=== PATIENT | female | born 1960 | race African-American/Black ===

== ENCOUNTER 2019-08-12 12:03 | Inpatient (IN) | payer MEDICARE, MEDICAID ==
--- NOTE | 2019-08-12 12:33 | RAD ---
CHEST 1 VIEW: INDICATION: Cough. COMPARISON: No prior comparison. FINDINGS: There is diffuse interstitial and alveolar opacity throughout each lung, superimposed enlarged cardia c silhouette and prominent pulmonary vasculature. Pleural-based densities inferiorly may relate to pleural fluid, left greater than right. Numerous extrinsic artifacts limit detail. IMPRESSION: Diffuse bilateral pulmonary parenchymal opacities which may be on the basis of edema or atypical, ryan ateral pneumonia. Superimposed pleural fluid is suspected. Recommend clinical correlation, as well as continued imaging followup. Transcribed Date/Time: 08/12/2019 12:38 PM
[2019-08-12 12:43] LABS: Hemoglobin 11.2 g/dL (12.0-16.0); Mean Corpuscular Hemoglobin 23.5 pg (27.0-31.0); Mean Corpuscular Volume 78.3 fL (78.0-98.0); Platelet Count 196 thou/uL (130-400); RBC Distribution Width 17.4 % (11.5-14.5); Red Blood Cell (RBC) Count 4.77 mill/uL (4.20-5.40); White Blood Cell (WBC) Count 12.4 thou/uL (4.8-10.8)
[2019-08-12 12:48] LABS: Actual Bicarbonate (HCO3a) 31.5 mEq/L (22-28); Analyzer IN Cardio ER; Base Excess (BEa) 5.8 mEq/L (-2.0 to +3.0); CO2 Tension 50.2 mmHg (35.0-45.0); Carboxyhemoglobin (COHb) 0.9 gm% (0.0-3.0); Hemoglobin (Hb) 12.2 g/dL (12.0-16.0); Potassium - ABG Lab 4.12 mmol/L (3.70-5.30); pH, Arterial 7.42 (7.35-7.45)
[2019-08-12 12:49] LABS: O2 Tension (PaO2) 59.2 mmHg (80.0-100.0); Puncture Site LRA
[2019-08-12 13:04] LABS: Anisocytosis SLIGHT = 6-15 cells (100X) (0-5/hpf); Band 3 % (5-11); Eosinophils 9 % (0-10); Hypochromia SLIGHT = 6-15 cells (100X) (0-5/hpf); Lymphocytes 3 % (21-51); MDiff Complete? YES; Monocytes 2 % (0-10); Neutrophil 83 % (42-75); Platelet Morphology Comment Appears Adequate; Polychromasia SLIGHT = 2-3 cells (100X) (0-2/hpf); Schistocytes SLIGHT = 2-5 cells (100X) (0-1/hpf); Target Cells SLIGHT = 2-5 cells (100X) (0-1/hpf)
[2019-08-12 13:09] LABS: ALT (SGPT) 24 U/L (8-55); AST (SGOT) 27 U/L (5-34); Albumin 3.6 g/dL (3.5-5.0); Alkaline Phosphatase 98 U/L (40-110); Anion Gap 14 mmol/L (10-20); BUN (Urea Nitrogen) 22 mg/dL (9.8-20.1); Bilirubin, Total 0.7 mg/dL (0.2-1.2); Calc. Creatinine Clearance 0 mL/min (70-130); Calcium 9.3 mg/dL (7.8-10.44); Carbon Dioxide 31 mmol/L (22-29); Chloride 100 mmol/L (98-107); Estimated GFR-MDRD 44; Globulin 3.3 g/dL (2.4-3.5); Glucose 106 mg/dL (70-105); Potassium 4.5 mmol/L (3.5-5.1); Protein, Total 6.9 g/dL (6.0-8.3); Sodium 140 mmol/L (136-145)
[2019-08-12] MEDS ORDERED: Acetaminophen 325 MG TAB PO PRN (15:16)
[2019-08-12] MEDS ORDERED: Dextrose 50% Abboject 50 ML SYRINGE SLOW IVP PRN (15:18)
[2019-08-12] MEDS ORDERED: Dextrose 5% in Water 1,000 ML IV PRN (15:18)
[2019-08-12] MEDS ORDERED: HumaLOG 300 UNITS/3 ML VIAL SC PRN (15:18)
--- NOTE | 2019-08-12 18:05 | HP ---
CHIEF COMPLAINT: Shortness of breath. HISTORY OF PRESENT ILLNESS: The patient is a 59-year-old female, who really has never been here before, who has history of hypertension, diastolic heart failure. Interstitial lung disease, who presents to the hospital with complaints of shortness of breath. Apparently, the patient was recently in the hospital at [facility] and was discharged to a [facility] and she was going for her nephrology appointment. When she got to the clinic, she appeared not well, was in a bit of respiratory distress and at this time, she was brought into the hospital for further evaluation. The patient initially was very obtunded. She was put on BiPAP and was admitted. The patient currently is much more awake and conversing. I did speak with the patient's daughter who is at the bedside, who stated that the patient has been in and out of the hospital multiple times with a similar process. She has been to the [facility] and she has been to [facility], which was recently and now she is here at [facility]. The patient states that she was recently treated for pneumonia. PAST MEDICAL HISTORY: She has a history of diastolic heart failure, unknown EF, COPD, hypertension, stroke, and also a diagnosis of interstitial lung disease. I am not exactly sure who made that diagnosis. SURGICAL HISTORY: No surgical history. ALLERGIES: SHE HAS NO KNOWN DRUG ALLERGIES. HOME MEDICATIONS: Per the records, 1. She takes aspirin 81 mg daily. 2. Lasix 20 mg daily. 3. Lamictal 25 mg twice a day. 4. Tradjenta 5 mg daily. 5. Pravastatin 20 mg daily. 6. Prednisone 20 mg daily. 7. Sevelamer 400 mg daily. 8. Allopurinol 300 mg daily. 9. Amlodipine 5 mg daily. 10. Carvedilol 12.5 b.i.d. 11. Plavix 75 mg daily. 12. Iron 325 daily. 13. Breo one puff into lung daily. REVIEW OF SYSTEMS: All negative except for the ones mentioned above in the HPI. SOCIAL HISTORY: She was a former smoker, smoke a pack and a half a day for many years. She has occasional alcohol use. Denies any recreational except for some marijuana at times. She is a full code. Lives alone. Her daughter normally works multimedia technician. FAMILY HISTORY: No history of heart disease, cancers, or strokes. PHYSICAL EXAMINATION: VITAL SIGNS: Temperature of 98.8, heart rate in the 80s, blood pressure 125/65. She is currently 93% on BiPAP. GENERAL: She is awake, alert, and oriented x3. Does not appear in distress. HEENT: Normocephalic, atraumatic. No lymphadenopathy noted. Pupils are equal and reactive to light. LUNGS: She has some decreased breath sounds to bilateral lower lungs. Mild crackles noted. CV: S1, S2 present. No murmurs, rubs, or gallops. ABDOMEN: Soft and nontender. Bowel sounds are present x2. EXTREMITIES: She does have some lower extremity edema. Her right foot appears to be little bit more swollen than the left and this is not abnormal for her. She states that she has had right knee surgery and that right knee always is more swollen than her left. NEUROVASCULAR: She is able to move all 4 extremities. SKIN: No cuts, lesions, or bruises noted. LABORATORY RESULTS: WBCs of 12.4, hemoglobin of 11.2, hematocrit of 37.3, her MCV is 78, platelets of 196. Chemistry; sodium of 140, potassium of 4.5, BUN of 22, creatinine of 1.47. Troponin x1 was negative. BNP is 21.6. Her chest x-ray that was done indicated significant bilateral pulmonary parenchymal opacities. ASSESSMENT AND PLAN: The patient is a very pleasant 59-year-old female, who presents to the hospital with shortness of breath. 1. Acute hypoxic respiratory failure. The patient was found to be hypoxic and was put on BiPAP. The patient currently is much more awake and alert and talking. She does have some records from [facility], which I did review and looks like she has diagnosis of interstitial lung disease. However, I am not exactly sure and neither does the family know where she was diagnosed with this. She also has had a CAT scan done without contrast. This was done and it indicated moderate pulmonary fibrosis with associated traction bronchiectasis with distribution favoring UIP pattern of disease and enlarged left axillary lymph node, borderline prominent mediastinal lymph node. We will consult Pulmonary. I will also send some autoimmune workup on this patient. I am not sure if she has had ever any autoimmune workup. She denies any autoimmune disease. We will start the patient on some DuoNeb. I do not think this is another pneumonia. She recently was in the hospital about a week ago and was treated with antibiotics, however, for now, I will put on antibiotics and we will deescalate. I will also put on some steroids and continue to monitor. 2. History of stroke. We will continue her aspirin and Plavix and her statin. 3. History of diastolic heart failure. I will give her a dose of Lasix. We will see if she has recently had an echo. If not, we will get another echocardiogram. 4. DVT prophylaxis. We will put the patient on subcu heparin. Job ID: [id number]
[2019-08-12] MEDS: methylPREDNISolone Sod Succ 40 MG VIAL IVP SCH (19:30)
[2019-08-12] MEDS: Heparin 5,000 UNITS/ML VIAL SC SCH (20:43)
[2019-08-12] MEDS: Famotidine 20 MG TAB PO SCH (20:43)
[2019-08-13] MEDS: methylPREDNISolone Sod Succ 40 MG VIAL IVP SCH ×5 (00:15→23:29)
[2019-08-13 06:08] LABS: Anion Gap 12 mmol/L (10-20); BUN (Urea Nitrogen) 24 mg/dL (9.8-20.1); Calc. Creatinine Clearance 76 mL/min (70-130); Calcium 9.3 mg/dL (7.8-10.44); Carbon Dioxide 31 mmol/L (22-29); Chloride 100 mmol/L (98-107); Estimated GFR-MDRD 46; Glucose 107 mg/dL (70-105); Potassium 4.8 mmol/L (3.5-5.1); Sodium 138 mmol/L (136-145)
[2019-08-13 06:44] LABS: #Lymphocytes 0.6 thou/uL (1.20-3.40); #Monocytes 0.1 thou/uL (0.11-0.59); #Neutrophils 6.3 thou/uL (1.40-6.50); %Eosinophils 0.1 % (0.0-10.0); %Lymphocytes 8.2 % (21.0-51.0); %Monocytes 1.7 % (0.0-10.0); Hemoglobin 10.3 g/dL (12.0-16.0); Hypochromia SLIGHT = 6-15 cells (100X) (0-5/hpf); MDiff Complete? YES; Mean Corpuscular HGB CONC 29.5 g/dL (32.0-36.0); Mean Corpuscular Hemoglobin 23.2 pg (27.0-31.0); Mean Corpuscular Volume 78.5 fL (78.0-98.0); Mean Platelet Volume 7.3 fL (7.4-10.4); Platelet Count 170 thou/uL (130-400); Platelet Morphology Comment Appears Adequate; RBC Distribution Width 17.1 % (11.5-14.5); Red Blood Cell (RBC) Count 4.44 mill/uL (4.20-5.40); Target Cells SLIGHT = 2-5 cells (100X) (0-1/hpf)
[2019-08-13] MEDS ORDERED: Non-Formulary Item 1 EACH (Fluticasone Propionate [Flovent Diskus] 50 MCG) IH PRN (07:40)
[2019-08-13] MEDS ORDERED: Carvedilol 6.25 MG TAB PO SCH (08:00)
[2019-08-13] MEDS ORDERED: Sevelamer Carbonate 800 MG TAB PO SCH (08:15)
[2019-08-13] MEDS ORDERED: Mometasone/Formoterol 120 PUFF INHALER INH SCH (08:15)
[2019-08-13] MEDS: Clopidogrel Bisulfate 75 MG TAB PO SCH (11:17)
[2019-08-13] MEDS: Famotidine 20 MG TAB PO SCH ×2 (11:17→20:30)
[2019-08-13] MEDS: Alogliptin 25 MG TAB PO SCH (11:17)
[2019-08-13] MEDS: Aspirin 81 mg Enteric Coated Tablet PO SCH (11:17)
[2019-08-13] MEDS: Allopurinol 300 MG TAB PO SCH (11:17)
[2019-08-13] MEDS: Sevelamer Carbonate 800 MG TAB PO SCH ×2 (11:18→18:23)
[2019-08-13] MEDS: Furosemide 40 MG TAB PO SCH (11:18)
[2019-08-13] MEDS: Heparin 5,000 UNITS/ML VIAL SC SCH ×3 (11:18→20:30)
--- NOTE | 2019-08-13 11:29 | CON ---
DATE OF CONSULTATION: HISTORY OF PRESENT ILLNESS: Christen Thomas is a 59-year-old female, who was brought to the ER for shortness of breath. Apparently, she went to see a academic counselor, told to come to the ER. She is an extremely poor historian. It appears she has multiple medical problems including renal failure, congestive heart failure, COPD, bipolar disorder, and depression. Her sister, apparently takes care of her, was going to work. She is a smoker, who has quit smoking some years ago without any prior history of TB or pneumonia. PAST MEDICAL HISTORY: Otherwise, pertinent for bipolar disorder, diabetes, hypertension, high cholesterol, COPD, and asthma. PAST SURGICAL HISTORY: Otherwise included none recently. REVIEW OF SYSTEMS: Difficult to obtain. We will talk to her sister when she is available. PHYSICAL EXAMINATION: VITAL SIGNS: Temperature 96, saturations are 94% on high flow, respiratory rate 20, and blood pressure 152/99. CHEST: Bilateral rhonchi and crackles. CARDIAC: Normal S1 and S2. No gallops. ABDOMEN: No masses. DIAGNOSTIC DATA: X-ray shows diffuse interstitial infiltrates, cardiomegaly. White count 7000, H and H of 10/35, and platelet count is 170. PO2 is 59, pCO2 of 50% on high flow. Creatinine 1.43. Blood cultures are negative. IMPRESSION: 1. Respiratory failure, probably congestive heart failure. 2. Chronic obstructive pulmonary disease. 3. Asthma. 4. Renal failure. 5. Bipolar disorder. PLAN: We will try to get this information from family as they arrive. Otherwise, I will continue present treatments, steroids, neb treatments, empiric antibiotics. We will follow. Consultation note, 70 minutes, 50% direct patient care. Job ID: [id number]
--- NOTE | 2019-08-13 12:41 | PDOC.HOSPP ---
- Subjective Encounter Date: 08/13/19 Encounter Time: 11:30 Subjective: pt up in bed no feels well - Objective Vital Signs & Weight: Vital Signs (12 hours) Temp Pulse Resp Pulse Ox 08/13/19 11:24 72 24 H 97 08/13/19 11:16 97.1 F L 08/13/19 07:51 76 28 H 97 08/13/19 07:47 96.8 F L 08/13/19 07:28 96 08/13/19 04:00 97.4 F L Weight Weight 248 lb 7 oz Most Recent Monitor Data Heart Rate from ECG 104 NIBP 155/98 NIBP BP-Mean 117 Respiration from ECG 36 SpO2 85 I&O: 08/12/19 08/13/19 08/14/19 06:59 06:59 06:59 Intake Total 730 Output Total 150 Balance 580 Result Diagrams: 08/13/19 05:15 08/13/19 05:15 Additional Labs: Accuchecks 08/13/19 08/13/19 08/12/19 10:42 05:37 20:51 POC Glucose 102 106 129 H 08/12/19 18:21 POC Glucose 95 Hospitalist ROS - Review of Systems Cardiovascular: denies: chest pain, palpitations, orthopnea, paroxysmal noc. dyspnea, edema, light headedness, other Gastrointestinal: denies: nausea, vomiting, abdominal pain, diarrhea, constipation, melena, hematochezia, other Genitourinary: denies: dysuria, frequency, incontinence, hematuria, retention, other - Medication Medications: Active Medications Generic Name Dose Route Start Last Admin Trade Name Freq PRN Reason Stop Dose Admin Albuterol/Ipratropium 3 ml 08/12/19 19:00 08/13/19 11:24 Duoneb NEB 3 ml [id number] BRIEN Administration Allopurinol 150 mg 08/13/19 09:00 08/13/19 11:17 Zyloprim PO 150 mg DAILY BRIEN Administration Alogliptin Benzoate 25 mg 08/13/19 09:00 08/13/19 11:17 Alogliptin PO 25 mg DAILY BRIEN Administration Aspirin 81 mg 08/13/19 09:00 08/13/19 11:17 Ecotrin PO 81 mg DAILY BRIEN Administration Clopidogrel Bisulfate 75 mg 08/13/19 09:00 08/13/19 11:17 Plavix PO 75 mg DAILY BRIEN Administration Famotidine 20 mg 08/12/19 21:00 08/13/19 11:17 Pepcid PO 20 mg BID BRIEN Administration Furosemide 40 mg 08/13/19 09:00 08/13/19 11:18 Lasix PO 40 mg DAILY BRIEN Administration Heparin Sodium (Porcine) 5,000 units 08/12/19 21:00 08/13/19 11:18 Heparin SC 5,000 units TID BRIEN Administration Levofloxacin 500 mg/ Device 100 mls @ 100 mls/hr 08/12/19 18:00 08/12/19 19: 30 IVPB 100 mls 1800 BRIEN Administration Methylprednisolone Sodium Succinate 40 mg 08/12/19 18:00 08/13/19 11:18 Solu-Medrol IVP 40 mg Q6HR BRIEN Administration Sertraline HCl 100 mg 08/13/19 09:00 08/13/19 11:18 Zoloft PO 100 mg DAILY BRIEN Administration Sevelamer Carbonate 800 mg 08/13/19 12:00 08/13/19 11:18 Renvela PO Not Given TID-WM BRIEN - Exam Heart: negative: RRR, no murmur, no gallops, no rubs, normal peripheral pulses, irregular, diminshed peripheral pulses, murmur present, II/IV, III/IV Respiratory: negative: CTAB, no wheezes, no rales, no ronchi, normal chest expansion, no tachypnea, normal percussion, rales, rhonchi, tachypneic, wheezes Gastrointestinal: negative: soft, non-tender, non-distended, normal bowel sounds , no palpable masses, no hepatomegaly, no splenomegaly, no bruit, no guarding, no rigidity, tender to palpation, distended, diminished bowl sounds, voluntary guarding Hosp A/P (1) Acute respiratory failure with hypoxia Code(s): J96.01 - ACUTE RESPIRATORY FAILURE WITH HYPOXIA Status: Acute (2) Interstitial lung disease Code(s): J84.9 - INTERSTITIAL PULMONARY DISEASE, UNSPECIFIED Status: Acute (3) CKD (chronic kidney disease) stage 3, GFR 30-59 ml/min Code(s): N18.3 - CHRONIC KIDNEY DISEASE, STAGE 3 (MODERATE) Status: Acute - Plan pt on high flow, will continue abx, duonebs and steroids. await pulmonary consult.
[2019-08-13] MEDS: lamoTRIgine 25 MG TAB PO SCH ×2 (13:07→20:30)
[2019-08-13] MEDS: Carvedilol 6.25 MG TAB PO SCH (18:23)
[2019-08-13] MEDS: Mometasone/Formoterol 120 PUFF INHALER INH SCH (18:33)
[2019-08-13] MEDS: Pravastatin Sodium 20 MG TAB PO SCH (20:30)
[2019-08-14] MEDS: methylPREDNISolone Sod Succ 40 MG VIAL IVP SCH ×3 (05:57→20:58)
[2019-08-14] MEDS: Mometasone/Formoterol 120 PUFF INHALER INH SCH ×2 (07:18→19:09)
[2019-08-14] MEDS: Alogliptin 25 MG TAB PO SCH (10:02)
[2019-08-14] MEDS: Sevelamer Carbonate 800 MG TAB PO SCH ×3 (10:03→15:30)
[2019-08-14] MEDS: Furosemide 40 MG TAB PO SCH (10:03)
[2019-08-14] MEDS: Carvedilol 6.25 MG TAB PO SCH ×2 (10:03→15:29)
[2019-08-14] MEDS: Clopidogrel Bisulfate 75 MG TAB PO SCH (10:03)
[2019-08-14] MEDS: lamoTRIgine 25 MG TAB PO SCH ×2 (10:03→20:57)
[2019-08-14] MEDS: Aspirin 81 mg Enteric Coated Tablet PO SCH (10:04)
[2019-08-14] MEDS: Allopurinol 300 MG TAB PO SCH (10:04)
[2019-08-14] MEDS: Heparin 5,000 UNITS/ML VIAL SC SCH ×3 (10:04→20:58)
[2019-08-14] MEDS: Famotidine 20 MG TAB PO SCH ×2 (10:04→20:57)
--- NOTE | 2019-08-14 12:39 | PDOC.HOSPP ---
- Subjective Encounter Date: 08/14/19 Encounter Time: 10:30 Subjective: pt up in bed feels well. - Objective Vital Signs & Weight: Vital Signs (12 hours) Temp Pulse Resp BP Pulse Ox 08/14/19 10:42 97.8 F 08/14/19 10:18 84 28 H 93 L 08/14/19 10:03 124/73 08/14/19 08:00 98 08/14/19 07:18 95 08/14/19 07:17 67 30 H 95 08/14/19 07:09 97.6 F 08/14/19 03:52 97.6 F Weight Weight 248 lb 7 oz Most Recent Monitor Data Heart Rate from ECG 75 NIBP 124/73 NIBP BP-Mean 90 Respiration from ECG 30 SpO2 97 I&O: 08/13/19 08/14/19 08/15/19 06:59 06:59 06:59 Intake Total 730 1830 Output Total 150 2950 Balance 580 -1120 Result Diagrams: 08/13/19 05:15 08/13/19 05:15 Additional Labs: Accuchecks 08/14/19 08/14/19 08/13/19 10:14 05:53 20:22 POC Glucose 107 115 H 117 H 08/13/19 16:48 POC Glucose 103 Hospitalist ROS - Review of Systems Cardiovascular: denies: chest pain, palpitations, orthopnea, paroxysmal noc. dyspnea, edema, light headedness, other Gastrointestinal: denies: nausea, vomiting, abdominal pain, diarrhea, constipation, melena, hematochezia, other Genitourinary: denies: dysuria, frequency, incontinence, hematuria, retention, other - Medication Medications: Active Medications Generic Name Dose Route Start Last Admin Trade Name Freq PRN Reason Stop Dose Admin Albuterol/Ipratropium 3 ml 08/12/19 19:00 08/14/19 10:18 Duoneb NEB 3 ml [id number] BRIEN Administration Allopurinol 150 mg 08/13/19 09:00 08/14/19 10:04 Zyloprim PO 150 mg DAILY BRIEN Administration Alogliptin Benzoate 25 mg 08/13/19 09:00 08/14/19 10:02 Alogliptin PO 25 mg DAILY BRIEN Administration Aspirin 81 mg 08/13/19 09:00 08/14/19 10:04 Ecotrin PO 81 mg DAILY BRIEN Administration Carvedilol 12.5 mg 08/13/19 16:30 08/14/19 10:03 Coreg PO 12.5 mg BID-AC BRIEN Administration Clopidogrel Bisulfate 75 mg 08/13/19 09:00 08/14/19 10:03 Plavix PO 75 mg DAILY BRIEN Administration Famotidine 20 mg 08/12/19 21:00 08/14/19 10:04 Pepcid PO 20 mg BID BRIEN Administration Furosemide 40 mg 08/13/19 09:00 08/14/19 10:03 Lasix PO 40 mg DAILY BRIEN Administration Heparin Sodium (Porcine) 5,000 units 08/12/19 21:00 08/14/19 10:04 Heparin SC 5,000 units TID BRIEN Administration Levofloxacin 500 mg/ Device 100 mls @ 100 mls/hr 08/12/19 18:00 08/13/19 18: 23 IVPB 100 mls 1800 BRIEN Administration Lamotrigine 50 mg 08/13/19 09:00 08/14/19 10:03 Lamictal PO 50 mg BID BRIEN Administration Methylprednisolone Sodium Succinate 40 mg 08/12/19 18:00 08/14/19 11:30 Solu-Medrol IVP 40 mg Q6HR BRIEN Administration Mometasone Furoate/Formoterol Fumar 2 puff 08/13/19 18:30 08/14/19 07:18 Dulera 100 Mcg/5 Mcg Inhaler INH 2 puff BID-RT BRIEN Administration Pravastatin Sodium 20 mg 08/13/19 21:00 08/13/19 20:30 Pravachol PO 20 mg HS BRIEN Administration Sertraline HCl 100 mg 08/13/19 09:00 08/14/19 10:03 Zoloft PO 100 mg DAILY BRIEN Administration Sevelamer Carbonate 800 mg 08/13/19 12:00 08/14/19 11:31 Renvela PO 800 mg TID-WM BRIEN Administration - Exam Neck: negative: supple, symmetric, no JVD, no thyromegaly, no lymphadenopathy, no carotid bruit, JVD Heart: negative: RRR, no murmur, no gallops, no rubs, normal peripheral pulses, irregular, diminshed peripheral pulses, murmur present, II/IV, III/IV Respiratory: rales Hosp A/P (1) Acute respiratory failure with hypoxia Code(s): J96.01 - ACUTE RESPIRATORY FAILURE WITH HYPOXIA Status: Acute (2) Interstitial lung disease Code(s): J84.9 - INTERSTITIAL PULMONARY DISEASE, UNSPECIFIED Status: Acute (3) CKD (chronic kidney disease) stage 3, GFR 30-59 ml/min Code(s): N18.3 - CHRONIC KIDNEY DISEASE, STAGE 3 (MODERATE) Status: Acute - Plan pt on high flow, will continue abx, duonebs and steroids. await pulmonary consult. 08/14 will change steroids to bid, will get records from the Med. spoke with pulm who stated that she had a autoimmune workup. echo pending.
--- NOTE | 2019-08-14 16:57 | PRG ---
DATE OF SERVICE: 08/14/2019 SUBJECTIVE: Christen Thomas is in no distress. OBJECTIVE: VITAL SIGNS: She is afebrile, heart rate is in the 80s, blood pressure 120/60, and oximetry is 94% on 3 L. Intake and outputs, -1120. LUNGS: Remarkable for crackles at her bases. She is not wheezing. HEART: Regular rate and rhythm. ABDOMEN: Soft. EXTREMITIES: Without edema. IMPRESSION AND PLAN: 1. ? chronic obstructive pulmonary disease. 2. ? interstitial pneumonitis. 3. History of diastolic heart failure. 4. History of hypertension. Apparently, she presented obtunded according to the H and P and with BiPAP, improved. She apparently was also recently hospitalized at [facility], but it is unclear what workup was performed down there. She did apparently come in on steroids. We will continue to follow. Job ID: [id number]
[2019-08-14] MEDS: Pravastatin Sodium 20 MG TAB PO SCH (20:57)
[2019-08-15] MEDS: Mometasone/Formoterol 120 PUFF INHALER INH SCH ×2 (07:22→19:22)
[2019-08-15] MEDS: Sevelamer Carbonate 800 MG TAB PO SCH ×3 (09:46→17:25)
[2019-08-15] MEDS: Carvedilol 6.25 MG TAB PO SCH ×2 (09:46→17:25)
[2019-08-15] MEDS: Allopurinol 300 MG TAB PO SCH (09:46)
[2019-08-15] MEDS: Heparin 5,000 UNITS/ML VIAL SC SCH ×3 (09:47→20:55)
[2019-08-15] MEDS: Famotidine 20 MG TAB PO SCH ×2 (09:47→20:54)
[2019-08-15] MEDS: Clopidogrel Bisulfate 75 MG TAB PO SCH (09:47)
[2019-08-15] MEDS: Aspirin 81 mg Enteric Coated Tablet PO SCH (09:47)
[2019-08-15] MEDS: Alogliptin 25 MG TAB PO SCH (09:47)
[2019-08-15] MEDS: Furosemide 40 MG TAB PO SCH (09:47)
[2019-08-15] MEDS: methylPREDNISolone Sod Succ 40 MG VIAL IVP SCH ×2 (09:48→20:55)
[2019-08-15] MEDS: lamoTRIgine 25 MG TAB PO SCH ×2 (09:48→20:54)
--- NOTE | 2019-08-15 11:18 | PRG ---
DATE OF SERVICE: 08/15/2019 SUBJECTIVE: The patient feels somewhat better. Has no acute issues at this time. OBJECTIVE: VITAL SIGNS: Her temperature is 97.3, pulse 86, blood pressure 134/82, O2 saturation 96% on 5 L. HEENT: Unremarkable. NECK: No adenopathy or JVD. LUNGS: Slightly tachypneic, but clear breath sounds. CARDIAC: S1, S2. Regular. ABDOMEN: Soft. EXTREMITIES: No edema. LABORATORY DATA: No new labs were done today. ASSESSMENT: 1. Chronic obstructive pulmonary disease. 2. Congestive heart failure-acute diastolic. 3. Bipolar disorder. PLAN: She is continuing treatment with nebulization treatments, antibiotics, diuretics, and steroids. Continue to follow with you. Job ID: [id number]
--- NOTE | 2019-08-15 14:42 | PDOC.HOSPP ---
- Subjective Encounter Date: 08/15/19 Encounter Time: 10:00 Subjective: SOB with minimal exertion, on O2 via N/C - Objective Vital Signs & Weight: Vital Signs (12 hours) Temp Pulse Pulse Pulse Resp BP BP 08/15/19 11:18 97.2 F L 08/15/19 10:46 93 21 H 08/15/19 09:46 120/60 08/15/19 08:51 99 96 117/74 08/15/19 07:22 97.3 F L 08/15/19 07:21 83 27 H 08/15/19 07:18 08/15/19 03:26 98.1 F BP Pulse Ox Pulse Ox Pulse Ox Pulse Ox 08/15/19 11:18 08/15/19 10:46 98 08/15/19 09:46 08/15/19 08:51 134/78 63 L 93 L 85 L 08/15/19 07:22 08/15/19 07:21 97 08/15/19 07:18 97 08/15/19 03:26 Weight Weight 248 lb 7 oz Most Recent Monitor Data Heart Rate from ECG 73 NIBP 125/88 NIBP BP-Mean 100 Respiration from ECG 28 SpO2 93 I&O: 08/14/19 08/15/19 08/16/19 06:59 06:59 06:59 Intake Total 1830 1090 Output Total 2950 1030 Balance -1120 60 Result Diagrams: 08/13/19 05:15 08/13/19 05:15 Additional Labs: Accuchecks 08/15/19 08/15/19 08/14/19 10:40 06:19 20:17 POC Glucose 120 H 119 H 113 H 08/14/19 16:16 POC Glucose 140 H Hospitalist ROS - Medication Medications: Active Medications Generic Name Dose Route Start Last Admin Trade Name Freq PRN Reason Stop Dose Admin Albuterol/Ipratropium 3 ml 08/12/19 19:00 08/15/19 10:46 Duoneb NEB 3 ml [id number] BRIEN Administration Allopurinol 150 mg 08/13/19 09:00 08/15/19 09:46 Zyloprim PO 150 mg DAILY BRIEN Administration Alogliptin Benzoate 25 mg 08/13/19 09:00 08/15/19 09:47 Alogliptin PO 25 mg DAILY BRIEN Administration Aspirin 81 mg 08/13/19 09:00 08/15/19 09:47 Ecotrin PO 81 mg DAILY BRIEN Administration Carvedilol 12.5 mg 08/13/19 16:30 08/15/19 09:46 Coreg PO 12.5 mg BID-AC BRIEN Administration Clopidogrel Bisulfate 75 mg 08/13/19 09:00 08/15/19 09:47 Plavix PO 75 mg DAILY BRIEN Administration Famotidine 20 mg 08/12/19 21:00 08/15/19 09:47 Pepcid PO 20 mg BID BRIEN Administration Furosemide 40 mg 08/13/19 09:00 08/15/19 09:47 Lasix PO 40 mg DAILY BRIEN Administration Heparin Sodium (Porcine) 5,000 units 08/12/19 21:00 08/15/19 09:47 Heparin SC 5,000 units TID BRIEN Administration Levofloxacin 500 mg/ Device 100 mls @ 100 mls/hr 08/12/19 18:00 08/14/19 16: 55 IVPB 100 mls 1800 BRIEN Administration Lamotrigine 50 mg 08/13/19 09:00 08/15/19 09:48 Lamictal PO 50 mg BID BRIEN Administration Methylprednisolone Sodium Succinate 40 mg 08/14/19 21:00 08/15/19 09:48 Solu-Medrol IVP 40 mg BID BRIEN Administration Mometasone Furoate/Formoterol Fumar 2 puff 08/13/19 18:30 08/15/19 07:22 Dulera 100 Mcg/5 Mcg Inhaler INH 2 puff BID-RT BRIEN Administration Pravastatin Sodium 20 mg 08/13/19 21:00 08/14/19 20:57 Pravachol PO 20 mg HS BRIEN Administration Sertraline HCl 100 mg 08/13/19 09:00 08/15/19 09:48 Zoloft PO 100 mg DAILY BRIEN Administration Sevelamer Carbonate 800 mg 08/13/19 12:00 08/15/19 13:09 Renvela PO 800 mg TID-WM BRIEN Administration - Exam General Appearance: ill appearing Neck: no JVD Respiratory: rales Gastrointestinal: soft Extremities: no edema Neurological: no weakness Psychiatric: A&O x 3 Hosp A/P (1) Interstitial lung disease Code(s): J84.9 - INTERSTITIAL PULMONARY DISEASE, UNSPECIFIED Status: Acute (2) Acute respiratory failure with hypoxia Code(s): J96.01 - ACUTE RESPIRATORY FAILURE WITH HYPOXIA Status: Acute (3) CKD (chronic kidney disease) stage 3, GFR 30-59 ml/min Code(s): N18.3 - CHRONIC KIDNEY DISEASE, STAGE 3 (MODERATE) Status: Acute Plan: stable.. - Plan Continue steroids, brochodilators, antibiotics.. f/u with pulmonary..
[2019-08-15] MEDS: Pravastatin Sodium 20 MG TAB PO SCH (20:54)
[2019-08-16] MEDS: Mometasone/Formoterol 120 PUFF INHALER INH SCH ×2 (07:51→18:24)
[2019-08-16] MEDS: Carvedilol 6.25 MG TAB PO SCH ×2 (09:38→16:47)
[2019-08-16] MEDS: Allopurinol 300 MG TAB PO SCH (09:39)
[2019-08-16] MEDS: Sevelamer Carbonate 800 MG TAB PO SCH ×3 (09:39→16:47)
[2019-08-16] MEDS: Alogliptin 25 MG TAB PO SCH (09:39)
[2019-08-16] MEDS: Heparin 5,000 UNITS/ML VIAL SC SCH ×3 (09:40→20:09)
[2019-08-16] MEDS: lamoTRIgine 25 MG TAB PO SCH ×2 (09:40→20:17)
[2019-08-16] MEDS: Clopidogrel Bisulfate 75 MG TAB PO SCH (09:40)
[2019-08-16] MEDS: Furosemide 40 MG TAB PO SCH (09:40)
[2019-08-16] MEDS: Famotidine 20 MG TAB PO SCH ×2 (09:40→20:08)
[2019-08-16] MEDS: methylPREDNISolone Sod Succ 40 MG VIAL IVP SCH ×2 (09:40→20:09)
[2019-08-16] MEDS: Aspirin 81 mg Enteric Coated Tablet PO SCH (09:40)
--- NOTE | 2019-08-16 11:17 | PRG ---
DATE OF SERVICE: 08/16/2019 SUBJECTIVE: Today, Ms. Thomas's family was in the room and after they reminded me, I did remember seeing her at [facility] about a month ago. Currently, she is being treated for chronic obstructive pulmonary disease, but I do remember that there was some question about interstitial lung disease. I am fairly sure she had a CT scan done at that facility, but has not been done here. She is better today. She continues to require high amounts of oxygen. OBJECTIVE: VITAL SIGNS: Her temperature is 97.2, pulse 78, blood pressure 151/103, O2 saturation 97% on 5 L. HEENT: Unremarkable. NECK: No adenopathy or JVD. CHEST: Inspiratory crackles. CARDIAC: S1, S2. Regular. ABDOMEN: Soft. EXTREMITIES: No edema. ASSESSMENT: 1. Likely has some degree of interstitial lung disease, need to get PFTs at some point during this hospitalization. 2. She apparently has an outpatient appointment to see both Dr. Sagastume and in the not so distant future. 3. Transfer to medical floor. Job ID: [id number]
--- NOTE | 2019-08-16 13:50 | PDOC.HOSPP ---
- Subjective Encounter Date: 08/16/19 Encounter Time: 01:30 Subjective: No new complaint. +SOB - Objective Vital Signs & Weight: Vital Signs (12 hours) Temp Pulse Pulse Pulse Resp BP BP 08/16/19 11:16 97.2 F L 08/16/19 10:37 83 31 H 08/16/19 09:38 120/60 08/16/19 08:38 111 H 114 H 159/67 H 08/16/19 07:51 132 H 23 H 08/16/19 07:32 08/16/19 07:09 97.2 F L 08/16/19 03:19 97.4 F L BP Pulse Ox Pulse Ox Pulse Ox Pulse Ox 08/16/19 11:16 08/16/19 10:37 92 L 08/16/19 09:38 08/16/19 08:38 127/108 H 88 L 68 L 90 L 08/16/19 07:51 92 L 08/16/19 07:32 95 08/16/19 07:09 08/16/19 03:19 Weight Weight 248 lb 7 oz Most Recent Monitor Data Heart Rate from ECG 81 NIBP 159/87 NIBP BP-Mean 111 Respiration from ECG 30 SpO2 92 I&O: 08/15/19 08/16/19 08/17/19 06:59 06:59 06:59 Intake Total 1090 1130 Output Total 1030 1550 Balance 60 -420 Result Diagrams: 08/13/19 05:15 08/13/19 05:15 Additional Labs: Accuchecks 08/16/19 08/16/19 08/15/19 10:08 05:17 19:55 POC Glucose 106 105 109 08/15/19 16:45 POC Glucose 96 Hospitalist ROS - Medication Medications: Active Medications Generic Name Dose Route Start Last Admin Trade Name Freq PRN Reason Stop Dose Admin Albuterol/Ipratropium 3 ml 08/12/19 19:00 08/16/19 10:37 Duoneb NEB 3 ml [id number] BRIEN Administration Allopurinol 150 mg 08/13/19 09:00 08/16/19 09:39 Zyloprim PO 150 mg DAILY BRIEN Administration Alogliptin Benzoate 25 mg 08/13/19 09:00 08/16/19 09:39 Alogliptin PO 25 mg DAILY BRIEN Administration Aspirin 81 mg 08/13/19 09:00 08/16/19 09:40 Ecotrin PO 81 mg DAILY BRIEN Administration Carvedilol 12.5 mg 08/13/19 16:30 08/16/19 09:38 Coreg PO 12.5 mg BID-AC BRIEN Administration Clopidogrel Bisulfate 75 mg 08/13/19 09:00 08/16/19 09:40 Plavix PO 75 mg DAILY BRIEN Administration Famotidine 20 mg 08/12/19 21:00 08/16/19 09:40 Pepcid PO 20 mg BID BRIEN Administration Furosemide 40 mg 08/13/19 09:00 08/16/19 09:40 Lasix PO 40 mg DAILY BRIEN Administration Heparin Sodium (Porcine) 5,000 units 08/12/19 21:00 08/16/19 09:40 Heparin SC 5,000 units TID BRIEN Administration Levofloxacin 500 mg/ Device 100 mls @ 100 mls/hr 08/12/19 18:00 08/15/19 17: 25 IVPB 100 mls 1800 BRIEN Administration Lamotrigine 50 mg 08/13/19 09:00 08/16/19 09:40 Lamictal PO 50 mg BID BRIEN Administration Methylprednisolone Sodium Succinate 40 mg 08/14/19 21:00 08/16/19 09:40 Solu-Medrol IVP 40 mg BID BRIEN Administration Mometasone Furoate/Formoterol Fumar 2 puff 08/13/19 18:30 08/16/19 07:51 Dulera 100 Mcg/5 Mcg Inhaler INH 2 puff BID-RT BRIEN Administration Pravastatin Sodium 20 mg 08/13/19 21:00 08/15/19 20:54 Pravachol PO 20 mg HS BRIEN Administration Sertraline HCl 100 mg 08/13/19 09:00 08/16/19 09:40 Zoloft PO 100 mg DAILY BRIEN Administration Sevelamer Carbonate 800 mg 08/13/19 12:00 08/16/19 12:37 Renvela PO 800 mg TID-WM BRIEN Administration - Exam General Appearance: awake alert (On O2 via N/C.) Neck: no JVD Heart: RRR Respiratory: no ronchi Gastrointestinal: soft Extremities: no edema Neurological: no weakness Psychiatric: normal affect Hosp A/P (1) Interstitial lung disease Code(s): J84.9 - INTERSTITIAL PULMONARY DISEASE, UNSPECIFIED Status: Acute (2) Acute respiratory failure with hypoxia Code(s): J96.01 - ACUTE RESPIRATORY FAILURE WITH HYPOXIA Status: Acute (3) CKD (chronic kidney disease) stage 3, GFR 30-59 ml/min Code(s): N18.3 - CHRONIC KIDNEY DISEASE, STAGE 3 (MODERATE) Status: Acute - Plan Continue steroids, antibiotics,brochodilators, f/u with pulmonary..
[2019-08-16] MEDS: Pravastatin Sodium 20 MG TAB PO SCH (20:08)
[2019-08-17] MEDS: Mometasone/Formoterol 120 PUFF INHALER INH SCH ×2 (06:45→18:31)
[2019-08-17] MEDS: Alogliptin 25 MG TAB PO SCH (08:41)
[2019-08-17] MEDS: Sevelamer Carbonate 800 MG TAB PO SCH ×3 (08:41→16:27)
[2019-08-17] MEDS: Allopurinol 300 MG TAB PO SCH (08:41)
[2019-08-17] MEDS: Aspirin 81 mg Enteric Coated Tablet PO SCH (08:41)
[2019-08-17] MEDS: Clopidogrel Bisulfate 75 MG TAB PO SCH (08:41)
[2019-08-17] MEDS: ALPRAZolam 1 MG TAB PO PRN (08:41)
[2019-08-17] MEDS: Furosemide 40 MG TAB PO SCH (08:42)
[2019-08-17] MEDS: Carvedilol 6.25 MG TAB PO SCH ×2 (08:42→16:27)
[2019-08-17] MEDS: Famotidine 20 MG TAB PO SCH ×2 (08:42→21:06)
[2019-08-17] MEDS: Heparin 5,000 UNITS/ML VIAL SC SCH ×3 (08:43→21:06)
[2019-08-17] MEDS: methylPREDNISolone Sod Succ 40 MG VIAL IVP SCH ×2 (08:44→21:06)
[2019-08-17] MEDS ORDERED: Mometasone 100 MCG HFA INHALER INH PRN (10:09)
[2019-08-17] MEDS: lamoTRIgine 25 MG TAB PO SCH ×2 (10:10→21:06)
--- NOTE | 2019-08-17 12:08 | PRG ---
DATE OF SERVICE: 08/17/2019 SUBJECTIVE: The patient is about the same. She had no new complaints this morning. OBJECTIVE: VITAL SIGNS: Temperature is 97.8, pulse 94, respirations 16, and O2 saturation 93% on 4 L. HEENT: Unremarkable. NECK: No adenopathy, JVD, or bruits. LUNGS: Clear. ABDOMEN: Soft. EXTREMITIES: No edema. ASSESSMENT: 1. Probable interstitial lung disease. 2. Chronic obstructive pulmonary disease. PLAN: Wean oxygen as tolerated. Continue on IV steroids. Job ID: [id number]
--- NOTE | 2019-08-17 12:25 | PDOC.HOSPP ---
- Subjective Encounter Date: 08/17/19 Encounter Time: 12:23 Subjective: comfortable on O2 - Objective Vital Signs & Weight: Vital Signs (12 hours) Temp Pulse Resp BP BP BP Pulse Ox 08/17/19 12:00 98.9 F 99 28 H 102/69 90 L 08/17/19 10:54 94 16 93 L 08/17/19 08:42 160/97 H 08/17/19 07:37 100 08/17/19 07:30 97.8 F 63 22 H 119/74 08/17/19 07:25 97.8 F 78 24 H 137/87 100 08/17/19 06:47 86 20 90 L 08/17/19 06:45 85 16 90 L 08/17/19 04:52 98.2 F 82 20 159/94 H 93 L Weight Weight 248 lb 7 oz Most Recent Monitor Data Heart Rate from ECG 88 NIBP 125/85 NIBP BP-Mean 98 Respiration from ECG 30 SpO2 93 I&O: 08/16/19 08/17/19 08/18/19 06:59 06:59 06:59 Intake Total 1130 860 Output Total 1550 1150 Balance -420 -290 Result Diagrams: 08/13/19 05:15 08/13/19 05:15 Additional Labs: Accuchecks 08/17/19 08/17/19 08/16/19 11:34 04:03 19:44 POC Glucose 152 H 124 H 116 H Hospitalist ROS - Medication Medications: Active Medications Generic Name Dose Route Start Last Admin Trade Name Freq PRN Reason Stop Dose Admin Albuterol/Ipratropium 3 ml 08/12/19 19:00 08/17/19 10:54 Duoneb NEB 3 ml [id number] BRIEN Administration Allopurinol 150 mg 08/13/19 09:00 08/17/19 08:41 Zyloprim PO 150 mg DAILY BRIEN Administration Alogliptin Benzoate 25 mg 08/13/19 09:00 08/17/19 08:41 Alogliptin PO 25 mg DAILY BRIEN Administration Alprazolam 1 mg 08/15/19 16:52 08/17/19 08:41 Xanax PO 1 mg HS PRN Administration Anxiety Aspirin 81 mg 08/13/19 09:00 08/17/19 08:41 Ecotrin PO 81 mg DAILY BRIEN Administration Carvedilol 12.5 mg 08/13/19 16:30 08/17/19 08:42 Coreg PO 12.5 mg BID-AC BRIEN Administration Clopidogrel Bisulfate 75 mg 08/13/19 09:00 08/17/19 08:41 Plavix PO 75 mg DAILY BRIEN Administration Famotidine 20 mg 08/12/19 21:00 08/17/19 08:42 Pepcid PO 20 mg BID BRIEN Administration Furosemide 40 mg 08/13/19 09:00 08/17/19 08:42 Lasix PO 40 mg DAILY BRIEN Administration Heparin Sodium (Porcine) 5,000 units 08/12/19 21:00 08/17/19 08:43 Heparin SC 5,000 units TID BRIEN Administration Lamotrigine 50 mg 08/13/19 09:00 08/17/19 10:10 Lamictal PO 50 mg BID BRIEN Administration Methylprednisolone Sodium Succinate 40 mg 08/14/19 21:00 08/17/19 08:44 Solu-Medrol IVP 40 mg BID BRIEN Administration Mometasone Furoate/Formoterol Fumar 2 puff 08/13/19 18:30 08/17/19 06:45 Dulera 100 Mcg/5 Mcg Inhaler INH 2 puff BID-RT BRIEN Administration Pravastatin Sodium 20 mg 08/13/19 21:00 08/16/19 20:08 Pravachol PO 20 mg HS BRIEN Administration Sertraline HCl 100 mg 08/13/19 09:00 08/17/19 08:41 Zoloft PO 100 mg DAILY BRIEN Administration Sevelamer Carbonate 800 mg 08/13/19 12:00 08/17/19 12:03 Renvela PO 800 mg TID-WM BRIEN Administration - Exam General Appearance: awake alert Neck: no JVD Heart: RRR, no murmur Respiratory - other findings: diffuse fine rales Gastrointestinal: soft, normal bowel sounds Extremities: 2+ LE edema Hosp A/P (1) Acute respiratory failure with hypoxia Code(s): J96.01 - ACUTE RESPIRATORY FAILURE WITH HYPOXIA Status: Acute (2) Interstitial lung disease Code(s): J84.9 - INTERSTITIAL PULMONARY DISEASE, UNSPECIFIED Status: Acute (3) COPD (chronic obstructive pulmonary disease) Status: Acute Qualifiers: COPD type: unspecified COPD Qualified Code(s): J44.9 - Chronic obstructive pulmonary disease, unspecified (4) HTN (hypertension) Code(s): I10 - ESSENTIAL (PRIMARY) HYPERTENSION Status: Acute Qualifiers: Hypertension type: essential hypertension Qualified Code(s): I10 - Essential (primary) hypertension - Plan cont steroids, nebs, etc wean O2 as tolerated PA&L cxr
--- NOTE | 2019-08-17 15:33 | RAD ---
EXAM: Chest PA and lateral: HISTORY: Cough COMPARISON: 08/12/2019 FINDINGS: Diffuse interstitial and hazy alveolar infiltrate throughout both lungs again noted. Bilateral pleural effusions. Heart and mediastinum appear unremarkable. Osseous structures are unremarkable. IMPRESSION: Diffuse bilateral interstitial and alveolar infiltrates. Possible worsening since prior exam.
--- NOTE | 2019-08-17 17:35 | PDOC.EVN ---
Event Note - Event Note Event Note: Cxr- extensive iterstitial changes, unchanged
[2019-08-17] MEDS: Pravastatin Sodium 20 MG TAB PO SCH (21:05)
[2019-08-18] MEDS: Mometasone/Formoterol 120 PUFF INHALER INH SCH ×2 (07:17→19:39)
[2019-08-18] MEDS: Sevelamer Carbonate 800 MG TAB PO SCH ×3 (08:25→17:07)
[2019-08-18] MEDS: Furosemide 40 MG TAB PO SCH (08:26)
[2019-08-18] MEDS: Alogliptin 25 MG TAB PO SCH (08:26)
[2019-08-18] MEDS: Clopidogrel Bisulfate 75 MG TAB PO SCH (08:26)
[2019-08-18] MEDS: Famotidine 20 MG TAB PO SCH ×2 (08:26→20:36)
[2019-08-18] MEDS: Allopurinol 300 MG TAB PO SCH (08:26)
[2019-08-18] MEDS: Carvedilol 6.25 MG TAB PO SCH ×2 (08:26→17:07)
[2019-08-18] MEDS: Heparin 5,000 UNITS/ML VIAL SC SCH ×3 (08:26→20:37)
[2019-08-18] MEDS: Aspirin 81 mg Enteric Coated Tablet PO SCH (08:26)
[2019-08-18] MEDS: methylPREDNISolone Sod Succ 40 MG VIAL IVP SCH (08:27)
--- NOTE | 2019-08-18 09:07 | PRG ---
DATE OF SERVICE: 08/18/2019 SUBJECTIVE: Christen Thomas, this morning, she is awake, alert, and responsive. She is less short of breath. OBJECTIVE: VITAL SIGNS: Saturations are 93% on 4 L, temperature 98, blood pressure respiratory rate 18. CHEST: Bilateral crackles. CARDIAC: Normal S1 and S2. No gallops. ABDOMEN: No masses. IMAGING STUDIES: X-ray still shows rather extensive bilateral interstitial alveolar infiltrates. Echocardiogram shows normal LV function. IMPRESSION: Acute on chronic respiratory failure, diastolic dysfunction, questionable underlying end-stage lung disease. PLAN: At this stage, we will switch over to oral steroids, neb treatments, supportive care. We will order a high-resolution CT of the chest. We will follow. Job ID: [id number]
[2019-08-18] MEDS: predniSONE 20 MG TAB PO SCH ×2 (09:34→20:36)
[2019-08-18] MEDS: lamoTRIgine 25 MG TAB PO SCH ×2 (09:35→20:36)
--- NOTE | 2019-08-18 10:30 | CT ---
CT OF THE THORAX WITHOUT IV CONTRAST INDICATION: History of interstitial lung disease COMPARISON: Chest radiograph dated August 17, 2019 FINDINGS: LUNGS: There is scattered bronchiectasis with interstitial and groundglass opacity seen diffusely thr oughout both lungs. No airspace consolidation is present. Pleural spaces: Clear Lymph nodes: No pathologically enlarged lymph nodes. Heart and great vessels: The lack of IV contrast limits interrogation of the heart and great vessels. There is scattered thoracic and coronary artery calcifications. Upper abdomen: There is a subcentimeter hypodensity within segment 5 of the right hepatic lobe that c annot be further characterize. There is a small hiatal hernia. The esophagus appears to be of normal caliber. Osseous structures: No acute osseous abnormality. There is scattered degenerative and osteoarthritic change present. IMPRESSION: Scattered bronchiectasis with interstitial and groundglass opacity seen through diffusely without both lungs without airspace consolidation is consistent with the patient's known history of interstitial lung disease. The extent of the disease is predominantly basilar and can be seen with entities such as UIP, drug toxicity, hypersensitivity pneumonitis and NSIP.
--- NOTE | 2019-08-18 12:46 | PDOC.HOSPP ---
- Subjective Encounter Date: 08/18/19 Encounter Time: 12:43 Subjective: sob with exertion - Objective Vital Signs & Weight: Vital Signs (12 hours) Temp Pulse Resp BP Pulse Ox 08/18/19 12:14 96 18 92 L 08/18/19 11:43 98.9 F 95 20 130/84 97 08/18/19 10:42 95 20 92 L 08/18/19 08:25 93 L 08/18/19 08:20 98.8 F 100 18 135/93 H 93 L 08/18/19 07:15 98 22 H 93 L 08/18/19 03:37 82 20 94 L Weight Weight 248 lb 7 oz Most Recent Monitor Data Heart Rate from ECG 88 NIBP 125/85 NIBP BP-Mean 98 Respiration from ECG 30 SpO2 93 I&O: 08/17/19 08/18/19 08/19/19 06:59 06:59 06:59 Intake Total 860 1290 Output Total 1150 450 Balance -290 840 Result Diagrams: 08/13/19 05:15 08/13/19 05:15 Additional Labs: Accuchecks 08/18/19 08/18/19 08/17/19 11:42 04:21 19:54 POC Glucose 104 112 H 110 08/17/19 16:46 POC Glucose 132 H Hospitalist ROS - Medication Medications: Active Medications Generic Name Dose Route Start Last Admin Trade Name Freq PRN Reason Stop Dose Admin Albuterol/Ipratropium 3 ml 08/12/19 19:00 08/18/19 10:42 Duoneb NEB 3 ml [id number] BRIEN Administration Allopurinol 150 mg 08/13/19 09:00 08/18/19 08:26 Zyloprim PO 150 mg DAILY BRIEN Administration Alogliptin Benzoate 25 mg 08/13/19 09:00 08/18/19 08:26 Alogliptin PO 25 mg DAILY BRIEN Administration Alprazolam 1 mg 08/15/19 16:52 08/17/19 08:41 Xanax PO 1 mg HS PRN Administration Anxiety Aspirin 81 mg 08/13/19 09:00 08/18/19 08:26 Ecotrin PO 81 mg DAILY BRIEN Administration Carvedilol 12.5 mg 08/13/19 16:30 08/18/19 08:26 Coreg PO 12.5 mg BID-AC BRIEN Administration Clopidogrel Bisulfate 75 mg 08/13/19 09:00 08/18/19 08:26 Plavix PO 75 mg DAILY BRIEN Administration Famotidine 20 mg 08/12/19 21:00 08/18/19 08:26 Pepcid PO 20 mg BID BRIEN Administration Furosemide 40 mg 08/13/19 09:00 08/18/19 08:26 Lasix PO 40 mg DAILY BRIEN Administration Heparin Sodium (Porcine) 5,000 units 08/12/19 21:00 08/18/19 08:26 Heparin SC 5,000 units TID BRIEN Administration Lamotrigine 50 mg 08/13/19 09:00 08/18/19 09:35 Lamictal PO 50 mg BID BRIEN Administration Levofloxacin 500 mg 08/18/19 09:00 08/18/19 08:25 Levaquin PO 500 mg DAILY BRIEN Administration Mometasone Furoate/Formoterol Fumar 2 puff 08/13/19 18:30 08/18/19 07:17 Dulera 100 Mcg/5 Mcg Inhaler INH 2 puff BID-RT BRIEN Administration Pravastatin Sodium 20 mg 08/13/19 21:00 08/17/19 21:05 Pravachol PO 20 mg HS BRIEN Administration Prednisone 20 mg 08/18/19 09:00 08/18/19 09:34 Prednisone PO Not Given BID [facility] Sertraline HCl 100 mg 08/13/19 09:00 08/18/19 08:26 Zoloft PO 100 mg DAILY BRIEN Administration Sevelamer Carbonate 800 mg 08/13/19 12:00 08/18/19 12:12 Renvela PO 800 mg TID-WM BRIEN Administration - Exam Neck: no JVD Heart: RRR, no murmur Respiratory - other findings: diffuse fine rales Gastrointestinal: soft, normal bowel sounds Extremities: 1+ LE edema Hosp A/P (1) Acute respiratory failure with hypoxia Code(s): J96.01 - ACUTE RESPIRATORY FAILURE WITH HYPOXIA Status: Acute (2) Interstitial lung disease Code(s): J84.9 - INTERSTITIAL PULMONARY DISEASE, UNSPECIFIED Status: Acute (3) COPD (chronic obstructive pulmonary disease) Status: Acute Qualifiers: COPD type: unspecified COPD Qualified Code(s): J44.9 - Chronic obstructive pulmonary disease, unspecified (4) HTN (hypertension) Code(s): I10 - ESSENTIAL (PRIMARY) HYPERTENSION Status: Acute Qualifiers: Hypertension type: essential hypertension Qualified Code(s): I10 - Essential (primary) hypertension - Plan cont nebs, etc wean O2 as tolerated PA&L cxr transition steroids to po CT scan- bronchiectasis, pulmonare fibrosis discuss with pulmonology
[2019-08-18] MEDS: Pravastatin Sodium 20 MG TAB PO SCH (20:36)
[2019-08-18] MEDS: ALPRAZolam 1 MG TAB PO PRN (21:36)
[2019-08-18] MEDS ORDERED: Sucralfate 1 GM TAB PO SCH (22:00)
[2019-08-18 22:54] LABS: Troponin I Less than 0.010 ng/mL (< 0.028)
[2019-08-19] MEDS: Mometasone/Formoterol 120 PUFF INHALER INH SCH ×2 (06:50→19:08)
[2019-08-19] MEDS: Carvedilol 6.25 MG TAB PO SCH ×2 (08:26→16:57)
[2019-08-19] MEDS: Alogliptin 25 MG TAB PO SCH (08:26)
[2019-08-19] MEDS: predniSONE 20 MG TAB PO SCH ×2 (08:26→20:54)
[2019-08-19] MEDS: Allopurinol 300 MG TAB PO SCH (08:26)
[2019-08-19] MEDS: Furosemide 40 MG TAB PO SCH (08:26)
[2019-08-19] MEDS: Aspirin 81 mg Enteric Coated Tablet PO SCH (08:26)
[2019-08-19] MEDS: Sevelamer Carbonate 800 MG TAB PO SCH ×3 (08:26→16:57)
[2019-08-19] MEDS: Famotidine 20 MG TAB PO SCH ×2 (08:26→20:53)
[2019-08-19] MEDS: Clopidogrel Bisulfate 75 MG TAB PO SCH (08:26)
[2019-08-19] MEDS: Heparin 5,000 UNITS/ML VIAL SC SCH ×3 (08:27→20:55)
[2019-08-19] MEDS: lamoTRIgine 25 MG TAB PO SCH ×2 (08:43→20:54)
--- NOTE | 2019-08-19 11:41 | PDOC.HOSPP ---
- Subjective Encounter Date: 08/19/19 Encounter Time: 11:39 Subjective: epigastic pain early am - Objective Vital Signs & Weight: Vital Signs (12 hours) Temp Pulse Resp BP Pulse Ox 08/19/19 11:38 92 14 08/19/19 08:30 93 L 08/19/19 08:20 90 18 92 L 08/19/19 07:21 98.6 F 86 22 H 127/83 93 L 08/19/19 06:52 87 16 94 L 08/19/19 06:50 87 16 94 L 08/19/19 05:14 98.1 F 82 18 148/88 H 95 08/19/19 00:00 98.5 F 83 18 126/79 96 Weight Weight 248 lb 7 oz Most Recent Monitor Data Heart Rate from ECG 88 NIBP 125/85 NIBP BP-Mean 98 Respiration from ECG 30 SpO2 93 I&O: 08/18/19 08/19/19 08/20/19 06:59 06:59 06:59 Intake Total 1290 1702 Output Total 450 300 Balance 840 1402 Result Diagrams: 08/13/19 05:15 08/13/19 05:15 Additional Labs: Accuchecks 08/19/19 08/18/19 08/18/19 05:15 20:31 16:29 POC Glucose 106 94 134 H 08/18/19 11:42 POC Glucose 104 Hospitalist ROS - Medication Medications: Active Medications Generic Name Dose Route Start Last Admin Trade Name Freq PRN Reason Stop Dose Admin Albuterol/Ipratropium 3 ml 08/12/19 19:00 08/19/19 11:38 Duoneb NEB 3 ml [id number] BRIEN Administration Allopurinol 150 mg 08/13/19 09:00 08/19/19 08:26 Zyloprim PO 150 mg DAILY BRIEN Administration Alogliptin Benzoate 25 mg 08/13/19 09:00 08/19/19 08:26 Alogliptin PO 25 mg DAILY BRIEN Administration Alprazolam 1 mg 08/15/19 16:52 08/18/19 21:36 Xanax PO 1 mg HS PRN Administration Anxiety Aspirin 81 mg 08/13/19 09:00 08/19/19 08:26 Ecotrin PO 81 mg DAILY BRIEN Administration Carvedilol 12.5 mg 08/13/19 16:30 08/19/19 08:26 Coreg PO 12.5 mg BID-AC BRIEN Administration Clopidogrel Bisulfate 75 mg 08/13/19 09:00 08/19/19 08:26 Plavix PO 75 mg DAILY BRIEN Administration Famotidine 20 mg 08/12/19 21:00 08/19/19 08:26 Pepcid PO 20 mg BID BRIEN Administration Furosemide 40 mg 08/13/19 09:00 08/19/19 08:26 Lasix PO 40 mg DAILY BRIEN Administration Heparin Sodium (Porcine) 5,000 units 08/12/19 21:00 08/19/19 08:27 Heparin SC 5,000 units TID BRIEN Administration Lamotrigine 50 mg 08/13/19 09:00 08/19/19 08:43 Lamictal PO 50 mg BID BRIEN Administration Levofloxacin 500 mg 08/18/19 09:00 08/19/19 08:26 Levaquin PO 500 mg DAILY BRIEN Administration Mometasone Furoate/Formoterol Fumar 2 puff 08/13/19 18:30 08/19/19 06:50 Dulera 100 Mcg/5 Mcg Inhaler INH 2 puff BID-RT BRIEN Administration Pravastatin Sodium 20 mg 08/13/19 21:00 08/18/19 20:36 Pravachol PO 20 mg HS BRIEN Administration Prednisone 20 mg 08/18/19 09:00 08/19/19 08:26 Prednisone PO 20 mg BID BRIEN Administration Sertraline HCl 100 mg 08/13/19 09:00 08/19/19 08:26 Zoloft PO 100 mg DAILY BRIEN Administration Sevelamer Carbonate 800 mg 08/13/19 12:00 08/19/19 08:26 Renvela PO 800 mg TID-WM BRIEN Administration - Exam General Appearance: NAD, awake alert Neck: no JVD Heart: RRR Respiratory - other findings: diffuse fine rales Gastrointestinal: soft, normal bowel sounds Extremities: 1+ LE edema Hosp A/P (1) Acute respiratory failure with hypoxia Code(s): J96.01 - ACUTE RESPIRATORY FAILURE WITH HYPOXIA Status: Acute (2) Interstitial lung disease Code(s): J84.9 - INTERSTITIAL PULMONARY DISEASE, UNSPECIFIED Status: Acute (3) COPD (chronic obstructive pulmonary disease) Status: Chronic Qualifiers: COPD type: unspecified COPD Qualified Code(s): J44.9 - Chronic obstructive pulmonary disease, unspecified (4) HTN (hypertension) Code(s): I10 - ESSENTIAL (PRIMARY) HYPERTENSION Status: Chronic Qualifiers: Hypertension type: essential hypertension Qualified Code(s): I10 - Essential (primary) hypertension - Plan cont nebs, etc wean O2 as tolerated PA&L cxr transition steroids to po discuss with pulmonology obtain CBS, BMP, trop
[2019-08-19 11:56] LABS: #Eosinphils 0.1 thou/uL (0.0-0.7); #Lymphocytes 0.5 thou/uL (1.20-3.40); #Monocytes 0.8 thou/uL (0.11-0.59); #Neutrophils 11.3 thou/uL (1.40-6.50); %Basophils 0.2 % (0.0-1.0); %Eosinophils 0.7 % (0.0-10.0); %Lymphocytes 3.6 % (21.0-51.0); %Monocytes 6.3 % (0.0-10.0); %Neutrophils 89.2 % (42.0-75.0); Hemoglobin 12.3 g/dL (12.0-16.0); Mean Corpuscular HGB CONC 30.5 g/dL (32.0-36.0); Mean Corpuscular Volume 78.6 fL (78.0-98.0); Mean Platelet Volume 6.9 fL (7.4-10.4); Platelet Count 175 thou/uL (130-400); RBC Distribution Width 17.5 % (11.5-14.5); Red Blood Cell (RBC) Count 5.15 mill/uL (4.20-5.40); White Blood Cell (WBC) Count 12.7 thou/uL (4.8-10.8)
[2019-08-19 12:19] LABS: Anion Gap 9 mmol/L (10-20); BUN (Urea Nitrogen) 47 mg/dL (9.8-20.1); Calc. Creatinine Clearance 57 mL/min (70-130); Calcium 10.2 mg/dL (7.8-10.44); Carbon Dioxide 37 mmol/L (22-29); Chloride 98 mmol/L (98-107); Estimated GFR-MDRD 32; Glucose 114 mg/dL (70-105); Potassium 4.6 mmol/L (3.5-5.1); Sodium 139 mmol/L (136-145)
[2019-08-19 12:20] LABS: Troponin I Less than 0.010 ng/mL (< 0.028)
[2019-08-19 12:40] LABS: Band 1 % (5-11); Lymphocytes 8 % (21-51); MDiff Complete? YES; Microcytosis SLIGHT = 6-15 cells (100X) (0-5/hpf); Monocytes 5 % (0-10); Neutrophil 86 % (42-75); Platelet Morphology Comment Appears Adequate; Polychromasia SLIGHT = 2-3 cells (100X) (0-2/hpf); Stomatocytes SLIGHT = 2-5 cells (100X) (0-1/hpf); Target Cells SLIGHT = 2-5 cells (100X) (0-1/hpf)
[2019-08-19] MEDS: Pravastatin Sodium 20 MG TAB PO SCH (20:54)
[2019-08-20] MEDS: Mometasone/Formoterol 120 PUFF INHALER INH SCH ×2 (07:15→19:14)
[2019-08-20] MEDS: lamoTRIgine 25 MG TAB PO SCH ×2 (12:05→21:00)
[2019-08-20] MEDS: Sevelamer Carbonate 800 MG TAB PO SCH ×3 (12:19→17:07)
[2019-08-20] MEDS: Carvedilol 6.25 MG TAB PO SCH ×2 (12:19→17:08)
[2019-08-20] MEDS: Clopidogrel Bisulfate 75 MG TAB PO SCH (12:20)
[2019-08-20] MEDS: Furosemide 40 MG TAB PO SCH (12:20)
[2019-08-20] MEDS: Allopurinol 300 MG TAB PO SCH (12:20)
[2019-08-20] MEDS: Alogliptin 25 MG TAB PO SCH (12:20)
[2019-08-20] MEDS: Aspirin 81 mg Enteric Coated Tablet PO SCH (12:20)
[2019-08-20] MEDS: Heparin 5,000 UNITS/ML VIAL SC SCH ×3 (12:21→21:00)
[2019-08-20] MEDS: predniSONE 20 MG TAB PO SCH ×2 (13:12→21:00)
[2019-08-20] MEDS: Famotidine 20 MG TAB PO SCH ×2 (13:12→21:00)
--- NOTE | 2019-08-20 14:20 | PDOC.HOSPP ---
- Subjective Encounter Date: 08/20/19 Encounter Time: 14:19 Subjective: no real change - Objective Vital Signs & Weight: Vital Signs (12 hours) Pulse Resp Pulse Ox 08/20/19 14:15 91 16 93 L Weight Weight 248 lb 7 oz Most Recent Monitor Data Heart Rate from ECG 88 NIBP 125/85 NIBP BP-Mean 98 Respiration from ECG 30 SpO2 93 I&O: 08/19/19 08/20/19 08/21/19 06:59 06:59 06:59 Intake Total 1702 1200 Output Total 300 Balance 1402 1200 Result Diagrams: 08/19/19 11:46 08/19/19 11:46 Additional Labs: Accuchecks 08/20/19 08/20/19 08/19/19 11:21 04:23 19:47 POC Glucose 110 117 H 111 H 08/19/19 16:29 POC Glucose 131 H Hospitalist ROS - Medication Medications: Active Medications Generic Name Dose Route Start Last Admin Trade Name Freq PRN Reason Stop Dose Admin Albuterol/Ipratropium 3 ml 08/12/19 19:00 08/20/19 14:15 Duoneb NEB 3 ml [id number] BRIEN Administration Allopurinol 150 mg 08/13/19 09:00 08/20/19 12:20 Zyloprim PO Not Given DAILY [facility] Alogliptin Benzoate 25 mg 08/13/19 09:00 08/20/19 12:20 Alogliptin PO Not Given DAILY [facility] Alprazolam 1 mg 08/15/19 16:52 08/18/19 21:36 Xanax PO 1 mg HS PRN Administration Anxiety Aspirin 81 mg 08/13/19 09:00 08/20/19 12:20 Ecotrin PO Not Given DAILY [facility] Carvedilol 12.5 mg 08/13/19 16:30 08/20/19 12:19 Coreg PO Not Given BID-AC [facility] Clopidogrel Bisulfate 75 mg 08/13/19 09:00 08/20/19 12:20 Plavix PO Not Given DAILY [facility] Famotidine 20 mg 08/12/19 21:00 08/20/19 13:12 Pepcid PO 20 mg BID [facility] Administration Furosemide 40 mg 08/13/19 09:00 08/20/19 12:20 Lasix PO Not Given DAILY [facility] Heparin Sodium (Porcine) 5,000 units 08/12/19 21:00 08/20/19 12:21 Heparin SC Not Given TID BRIEN Lamotrigine 50 mg 08/13/19 09:00 08/19/19 20:54 Lamictal PO 50 mg BID BRIEN Administration Levofloxacin 500 mg 08/18/19 09:00 08/20/19 12:21 Levaquin PO Not Given DAILY BRIEN Mometasone Furoate/Formoterol Fumar 2 puff 08/13/19 18:30 08/20/19 07:15 Dulera 100 Mcg/5 Mcg Inhaler INH 2 puff BID-RT BRIEN Administration Pravastatin Sodium 20 mg 08/13/19 21:00 08/19/19 20:54 Pravachol PO 20 mg HS BRIEN Administration Prednisone 20 mg 08/18/19 09:00 08/20/19 13:12 Prednisone PO 20 mg BID BRIEN Administration Sertraline HCl 100 mg 08/13/19 09:00 08/20/19 12:21 Zoloft PO Not Given DAILY BRIEN Sevelamer Carbonate 800 mg 08/13/19 12:00 08/20/19 13:11 Renvela PO 800 mg TID-WM BRIEN Administration - Exam Neck: no JVD Heart: RRR Respiratory - other findings: diffuse fine rales Gastrointestinal: soft, normal bowel sounds Extremities: 1+ LE edema Hosp A/P (1) Acute respiratory failure with hypoxia Code(s): J96.01 - ACUTE RESPIRATORY FAILURE WITH HYPOXIA Status: Acute (2) Interstitial lung disease Code(s): J84.9 - INTERSTITIAL PULMONARY DISEASE, UNSPECIFIED Status: Acute (3) COPD (chronic obstructive pulmonary disease) Status: Chronic Qualifiers: COPD type: unspecified COPD Qualified Code(s): J44.9 - Chronic obstructive pulmonary disease, unspecified (4) HTN (hypertension) Code(s): I10 - ESSENTIAL (PRIMARY) HYPERTENSION Status: Chronic Qualifiers: Hypertension type: essential hypertension Qualified Code(s): I10 - Essential (primary) hypertension - Plan cont nebs, etc wean O2 as tolerated PA&L cxr transition steroids to po discuss with pulmonology
[2019-08-20] MEDS: Pravastatin Sodium 20 MG TAB PO SCH (21:00)
[2019-08-21] MEDS: Mometasone/Formoterol 120 PUFF INHALER INH SCH ×2 (06:39→19:51)
[2019-08-21] MEDS: Carvedilol 6.25 MG TAB PO SCH ×2 (08:50→17:47)
[2019-08-21] MEDS: Furosemide 40 MG TAB PO SCH (08:50)
[2019-08-21] MEDS: predniSONE 20 MG TAB PO SCH ×2 (08:51→21:14)
[2019-08-21] MEDS: Aspirin 81 mg Enteric Coated Tablet PO SCH (08:51)
[2019-08-21] MEDS: lamoTRIgine 25 MG TAB PO SCH ×2 (08:51→21:14)
[2019-08-21] MEDS: Sevelamer Carbonate 800 MG TAB PO SCH ×3 (08:52→17:48)
[2019-08-21] MEDS: Heparin 5,000 UNITS/ML VIAL SC SCH ×3 (08:52→21:11)
[2019-08-21] MEDS: Allopurinol 300 MG TAB PO SCH (08:52)
[2019-08-21] MEDS: Alogliptin 25 MG TAB PO SCH (08:52)
[2019-08-21] MEDS: Clopidogrel Bisulfate 75 MG TAB PO SCH (08:52)
[2019-08-21] MEDS: Famotidine 20 MG TAB PO SCH ×2 (08:52→21:11)
--- NOTE | 2019-08-21 12:08 | PDOC.HOSPP ---
- Subjective Encounter Date: 08/21/19 Encounter Time: 08:00 Subjective: pt feels weakness, has dyspnea and cough, no fever Patient seen and examined. No overnight events - Objective Vital Signs & Weight: Vital Signs (12 hours) Temp Pulse Resp BP BP Pulse Ox 08/21/19 10:54 89 46 H 93 L 08/21/19 08:50 118/80 08/21/19 08:08 98.6 F 90 22 H 118/80 94 L 08/21/19 06:37 87 16 95 08/21/19 02:54 93 L Weight Weight 248 lb 7 oz Most Recent Monitor Data Heart Rate from ECG 88 NIBP 125/85 NIBP BP-Mean 98 Respiration from ECG 30 SpO2 93 I&O: 08/20/19 08/21/19 08/22/19 06:59 06:59 06:59 Intake Total 1200 640 Balance 1200 640 Result Diagrams: 08/19/19 11:46 08/19/19 11:46 Additional Labs: Accuchecks 08/21/19 08/20/19 08/20/19 05:05 20:01 16:43 POC Glucose 106 97 106 08/20/19 11:21 POC Glucose 110 Radiology Reviewed by me: Yes Hospitalist ROS - Review of Systems Constitutional: reports: weakness. denies: fever, chills, sweats, malaise, other Respiratory: reports: cough, shortness of breath. denies: dry, hemoptysis, SOB with excertion, pleuritic pain, sputum, wheezing, other Cardiovascular: denies: chest pain, palpitations, orthopnea, paroxysmal noc. dyspnea, edema, light headedness, other Gastrointestinal: denies: nausea, vomiting, abdominal pain, diarrhea, constipation, melena, hematochezia, other Genitourinary: denies: dysuria, frequency, incontinence, hematuria, retention, other Musculoskeletal: denies: neck pain, shoulder pain, arm pain, back pain, hand pain, leg pain, foot pain, other Skin: denies: rash, lesions, hue, bruising, other - Medication Medications: Active Medications Generic Name Dose Route Start Last Admin Trade Name Freq PRN Reason Stop Dose Admin Albuterol/Ipratropium 3 ml 08/12/19 19:00 08/21/19 10:54 Duoneb NEB 3 ml [id number] BRIEN Administration Allopurinol 150 mg 08/13/19 09:00 08/21/19 08:52 Zyloprim PO 150 mg DAILY BRIEN Administration Alogliptin Benzoate 25 mg 08/13/19 09:00 08/21/19 08:52 Alogliptin PO 25 mg DAILY BRIEN Administration Alprazolam 1 mg 08/15/19 16:52 08/18/19 21:36 Xanax PO 1 mg HS PRN Administration Anxiety Aspirin 81 mg 08/13/19 09:00 08/21/19 08:51 Ecotrin PO 81 mg DAILY BRIEN Administration Carvedilol 12.5 mg 08/13/19 16:30 08/21/19 08:50 Coreg PO 12.5 mg BID-AC BRIEN Administration Clopidogrel Bisulfate 75 mg 08/13/19 09:00 08/21/19 08:52 Plavix PO 75 mg DAILY BRIEN Administration Famotidine 20 mg 08/12/19 21:00 08/21/19 08:52 Pepcid PO 20 mg BID BRIEN Administration Furosemide 40 mg 08/13/19 09:00 08/21/19 08:50 Lasix PO 40 mg DAILY BRIEN Administration Heparin Sodium (Porcine) 5,000 units 08/12/19 21:00 08/21/19 08:52 Heparin SC 5,000 units TID BRIEN Administration Lamotrigine 50 mg 08/13/19 09:00 08/21/19 08:51 Lamictal PO 50 mg BID BRIEN Administration Levofloxacin 500 mg 08/18/19 09:00 08/21/19 08:52 Levaquin PO 500 mg DAILY BRIEN Administration Mometasone Furoate/Formoterol Fumar 2 puff 08/13/19 18:30 08/21/19 06:39 Dulera 100 Mcg/5 Mcg Inhaler INH 2 puff BID-RT BRIEN Administration Pravastatin Sodium 20 mg 08/13/19 21:00 08/20/19 21:00 Pravachol PO 20 mg HS BRIEN Administration Prednisone 20 mg 08/18/19 09:00 08/21/19 08:51 Prednisone PO 20 mg BID BRIEN Administration Sertraline HCl 100 mg 08/13/19 09:00 08/21/19 08:51 Zoloft PO 100 mg DAILY BRIEN Administration Sevelamer Carbonate 800 mg 08/13/19 12:00 08/21/19 08:52 Renvela PO 800 mg TID-WM BRIEN Administration - Exam General Appearance: NAD, awake alert Eye: PERRL, anicteric sclera ENT: normocephalic atraumatic, no oropharyngeal lesions ENT - other findings: oral thrush Neck: supple, symmetric, no JVD Heart: RRR, no murmur, no gallops, no rubs Respiratory: no tachypnea Respiratory - other findings: few scattered rales Gastrointestinal: soft, non-tender, non-distended, normal bowel sounds Extremities: no cyanosis, no clubbing, no edema Skin: normal turgor, no lesions Neurological: no focal deficits Musculoskeletal: normal tone, normal strength Psychiatric: normal affect, normal behavior Hosp A/P (1) Morbid obesity with BMI of 40.0-44.9, adult Code(s): E66.01 - MORBID (SEVERE) OBESITY DUE TO EXCESS CALORIES; Z68.41 - BODY MASS INDEX (BMI) 40.0-44.9, ADULT Status: Chronic (2) Acute respiratory failure with hypoxia Code(s): J96.01 - ACUTE RESPIRATORY FAILURE WITH HYPOXIA Status: Acute (3) CKD (chronic kidney disease) stage 3, GFR 30-59 ml/min Code(s): N18.3 - CHRONIC KIDNEY DISEASE, STAGE 3 (MODERATE) Status: Acute (4) Interstitial lung disease Code(s): J84.9 - INTERSTITIAL PULMONARY DISEASE, UNSPECIFIED Status: Acute (5) COPD (chronic obstructive pulmonary disease) Status: Chronic Qualifiers: COPD type: unspecified COPD Qualified Code(s): J44.9 - Chronic obstructive pulmonary disease, unspecified (6) HTN (hypertension) Code(s): I10 - ESSENTIAL (PRIMARY) HYPERTENSION Status: Chronic Qualifiers: Hypertension type: essential hypertension Qualified Code(s): I10 - Essential (primary) hypertension - Plan old records reviewed/req, PT/OT, respiratory therapy 08/21/19 medication reviewed continue to provide supportive care nystatin for oral thrush pulmonary following
[2019-08-21] MEDS ORDERED: Nystatin 100,000 Units/mL UDCUP SSW SCH (13:00)
[2019-08-21] MEDS: Nystatin 500,000 UNITS/5 ML UDCUP SSW SCH ×3 (14:01→21:14)
--- NOTE | 2019-08-21 20:04 | PRG ---
DATE OF SERVICE: 08/21/2019 Lizeth Thomas has no new complaints. She looks quite similar to how she looked when she was at [facility]. I reviewed her CT of her chest that was ordered and done a few days ago. She has a diffuse increase in interstitial markings. She has bronchiectasis. My gut feeling is that she has usual interstitial pneumonitis. We will send a hypersensitivity pneumonitis panel, but I doubt that is what this is. She is quite frail and I cannot see recommending surgical lung biopsy or transbronchial biopsies. I talked to the daughter who works over the [employer] and she agreed with this. I will be happy to follow her as an outpatient. Not sure how much of prednisone is helping her, but I do not think it is hurting her at this point. I think she is getting closer to a point where she can be discharged. It is hard for me to know what her baseline is. She appears comfortable at rest. Obviously, probably get pretty short of breath when she is moving around. Other problems include chronic kidney disease and hypertension. Job ID: [id number] [facility]
[2019-08-21] MEDS: Pravastatin Sodium 20 MG TAB PO SCH (21:14)
--- NOTE | 2019-08-21 21:20 | EKG ---
Test Reason : Blood Pressure : / mmHG Vent. Rate : 089 BPM Atrial Rate : 089 BPM P-R Int : 162 ms QRS Dur : 088 ms QT Int : 354 ms P-R-T Axes : 045 -18 016 degrees QTc Int : 430 ms Normal sinus rhythm Normal ECG When compared with ECG of 12-AUG-2019 12:18, (Unconfirmed) Fusion complexes are no longer Present Confirmed by Chanel JOHNSON ([id number]) on 08/21/2019 9:19:44 PM Referred By: ZAIDA Confirmed By:Chanel JOHNSON
[2019-08-22] MEDS: Mometasone/Formoterol 120 PUFF INHALER INH SCH ×2 (06:42→18:32)
[2019-08-22] MEDS: predniSONE 20 MG TAB PO SCH ×2 (08:08→20:34)
[2019-08-22] MEDS: Carvedilol 6.25 MG TAB PO SCH ×2 (08:08→16:34)
[2019-08-22] MEDS: lamoTRIgine 25 MG TAB PO SCH ×2 (08:08→20:33)
[2019-08-22] MEDS: Allopurinol 300 MG TAB PO SCH (08:09)
[2019-08-22] MEDS: Alogliptin 25 MG TAB PO SCH (08:10)
[2019-08-22] MEDS: Heparin 5,000 UNITS/ML VIAL SC SCH ×3 (08:10→20:34)
[2019-08-22] MEDS: Sevelamer Carbonate 800 MG TAB PO SCH ×3 (08:10→17:30)
[2019-08-22] MEDS: Famotidine 20 MG TAB PO SCH ×2 (08:10→20:34)
[2019-08-22] MEDS: Aspirin 81 mg Enteric Coated Tablet PO SCH (08:10)
[2019-08-22] MEDS: Clopidogrel Bisulfate 75 MG TAB PO SCH (08:10)
[2019-08-22] MEDS: Furosemide 40 MG TAB PO SCH (08:10)
[2019-08-22] MEDS: Nystatin 500,000 UNITS/5 ML UDCUP SSW SCH ×4 (08:17→20:43)
--- NOTE | 2019-08-22 12:30 | PDOC.HOSPP ---
- Subjective Encounter Date: 08/22/19 Encounter Time: 10:00 Subjective: Patient seen and examined. No new complaints. No overnight events - Objective Vital Signs & Weight: Vital Signs (12 hours) Temp Pulse Resp BP BP Pulse Ox 08/22/19 11:17 98.5 F 97 20 115/72 92 L 08/22/19 10:22 97 24 H 95 08/22/19 08:08 125/86 08/22/19 08:00 93 L 08/22/19 07:35 97.9 F 83 18 125/86 93 L 08/22/19 06:40 98 24 H 94 L Weight Weight 248 lb 7 oz Most Recent Monitor Data Heart Rate from ECG 88 NIBP 125/85 NIBP BP-Mean 98 Respiration from ECG 30 SpO2 93 I&O: 08/21/19 08/22/19 08/23/19 06:59 06:59 06:59 Intake Total 640 480 Balance 640 480 Result Diagrams: 08/19/19 11:46 08/19/19 11:46 Additional Labs: Accuchecks 08/22/19 08/22/19 08/21/19 11:23 04:50 19:55 POC Glucose 131 H 122 H 107 08/21/19 08/21/19 16:49 12:24 POC Glucose 103 127 H Hospitalist ROS - Review of Systems Respiratory: reports: cough, SOB with excertion. denies: dry, shortness of breath, hemoptysis, pleuritic pain, sputum, wheezing, other Cardiovascular: denies: chest pain, palpitations, orthopnea, paroxysmal noc. dyspnea, edema, light headedness, other Gastrointestinal: denies: nausea, vomiting, abdominal pain, diarrhea, constipation, melena, hematochezia, other Genitourinary: denies: dysuria, frequency, incontinence, hematuria, retention, other Musculoskeletal: denies: neck pain, shoulder pain, arm pain, back pain, hand pain, leg pain, foot pain, other - Medication Medications: Active Medications Generic Name Dose Route Start Last Admin Trade Name Freq PRN Reason Stop Dose Admin Albuterol/Ipratropium 3 ml 08/12/19 19:00 08/22/19 10:22 Duoneb NEB 3 ml [id number] BRIEN Administration Allopurinol 150 mg 08/13/19 09:00 08/22/19 08:09 Zyloprim PO 150 mg DAILY BRIEN Administration Alogliptin Benzoate 25 mg 08/13/19 09:00 08/22/19 08:10 Alogliptin PO 25 mg DAILY BRIEN Administration Alprazolam 1 mg 08/15/19 16:52 08/18/19 21:36 Xanax PO 1 mg HS PRN Administration Anxiety Aspirin 81 mg 08/13/19 09:00 08/22/19 08:10 Ecotrin PO 81 mg DAILY BRIEN Administration Carvedilol 12.5 mg 08/13/19 16:30 08/22/19 08:08 Coreg PO 12.5 mg BID-AC BRIEN Administration Clopidogrel Bisulfate 75 mg 08/13/19 09:00 08/22/19 08:10 Plavix PO 75 mg DAILY BRIEN Administration Famotidine 20 mg 08/12/19 21:00 08/22/19 08:10 Pepcid PO 20 mg BID BRIEN Administration Furosemide 40 mg 08/13/19 09:00 08/22/19 08:10 Lasix PO 40 mg DAILY BRIEN Administration Heparin Sodium (Porcine) 5,000 units 08/12/19 21:00 08/22/19 08:10 Heparin SC 5,000 units TID BRIEN Administration Lamotrigine 50 mg 08/13/19 09:00 08/22/19 08:08 Lamictal PO 50 mg BID BRIEN Administration Levofloxacin 500 mg 08/18/19 09:00 08/22/19 08:09 Levaquin PO 500 mg DAILY BRIEN Administration Mometasone Furoate/Formoterol Fumar 2 puff 08/13/19 18:30 08/22/19 06:42 Dulera 100 Mcg/5 Mcg Inhaler INH 2 puff BID-RT BRIEN Administration Nystatin 500,000 units 08/21/19 13:00 08/22/19 08:17 Mycostatin SSW 500,000 units QID BRIEN Administration Pravastatin Sodium 20 mg 08/13/19 21:00 08/21/19 21:14 Pravachol PO 20 mg HS BRIEN Administration Prednisone 20 mg 08/18/19 09:00 08/22/19 08:08 Prednisone PO 20 mg BID BRIEN Administration Sertraline HCl 100 mg 08/13/19 09:00 08/22/19 08:09 Zoloft PO 100 mg DAILY BRIEN Administration Sevelamer Carbonate 800 mg 08/13/19 12:00 08/22/19 08:10 Renvela PO 800 mg TID- BRIEN Administration - Exam General Appearance: NAD, awake alert Eye: PERRL, anicteric sclera ENT: normocephalic atraumatic, no oropharyngeal lesions Neck: supple, symmetric, no JVD Heart: RRR, no murmur, no gallops, no rubs Respiratory: no ronchi, no tachypnea Gastrointestinal: soft, non-tender, non-distended, normal bowel sounds Extremities: no cyanosis, no clubbing Skin: normal turgor, no lesions Neurological: no focal deficits Musculoskeletal: normal tone, normal strength Psychiatric: normal affect, normal behavior, A&O x 3 Hosp A/P (1) Acute respiratory failure with hypoxia Code(s): J96.01 - ACUTE RESPIRATORY FAILURE WITH HYPOXIA Status: Acute (2) Interstitial lung disease Code(s): J84.9 - INTERSTITIAL PULMONARY DISEASE, UNSPECIFIED Status: Acute (3) Morbid obesity with BMI of 40.0-44.9, adult Code(s): E66.01 - MORBID (SEVERE) OBESITY DUE TO EXCESS CALORIES; Z68.41 - BODY MASS INDEX (BMI) 40.0-44.9, ADULT Status: Chronic (4) CKD (chronic kidney disease) stage 3, GFR 30-59 ml/min Code(s): N18.3 - CHRONIC KIDNEY DISEASE, STAGE 3 (MODERATE) Status: Acute (5) COPD (chronic obstructive pulmonary disease) Status: Chronic Qualifiers: COPD type: unspecified COPD Qualified Code(s): J44.9 - Chronic obstructive pulmonary disease, unspecified (6) HTN (hypertension) Code(s): I10 - ESSENTIAL (PRIMARY) HYPERTENSION Status: Chronic Qualifiers: Hypertension type: essential hypertension Qualified Code(s): I10 - Essential (primary) hypertension - Plan old records reviewed/req 08/21/19 medication reviewed continue to provide supportive care nystatin for oral thrush pulmonary following 08/22/19 medication reviewed and continue to provide supportive care pulmonary following
--- NOTE | 2019-08-22 13:57 | PRG ---
DATE OF SERVICE: 08/22/2019 SUBJECTIVE: William has no new complaints. She appears comfortable. VITAL SIGNS: She is afebrile, heart rate 97, respiratory rate 20, blood pressure 115/72, nasal cannula. LUNGS: Remarkable for bilateral crackles. HEART: Regular rhythm. ABDOMEN: Soft . IMPRESSION: Pulmonary fibrosis. She is interested in going back to a rehab environment. She probably will stay on prednisone for now, but her prednisone dose at discharge could be cut back to 20 mg a day. I will be happy to see her in 2 to 3 weeks. Job ID: [id number]
[2019-08-22] MEDS: Senokot S 8.6-50 MG TAB PO PRN (13:58)
[2019-08-22] MEDS ORDERED: ALPRAZolam 0.25 MG TAB PO PRN (19:06)
[2019-08-22] MEDS: Pravastatin Sodium 20 MG TAB PO SCH (20:34)
[2019-08-23] MEDS: Mometasone/Formoterol 120 PUFF INHALER INH SCH ×2 (07:10→18:37)
[2019-08-23 07:33] LABS: ALT (SGPT) 41 U/L (8-55); AST (SGOT) 24 U/L (5-34); Albumin 3.4 g/dL (3.5-5.0); Alkaline Phosphatase 101 U/L (40-110); Anion Gap 11 mmol/L (10-20); BUN (Urea Nitrogen) 41 mg/dL (9.8-20.1); Bilirubin, Total 0.7 mg/dL (0.2-1.2); Calc. Creatinine Clearance 56 mL/min (70-130); Calcium 9.7 mg/dL (7.8-10.44); Carbon Dioxide 34 mmol/L (22-29); Chloride 98 mmol/L (98-107); Estimated GFR-MDRD 32; Globulin 3.1 g/dL (2.4-3.5); Glucose 117 mg/dL (70-105); Potassium 4.9 mmol/L (3.5-5.1); Protein, Total 6.5 g/dL (6.0-8.3); Sodium 138 mmol/L (136-145)
[2019-08-23 08:16] LABS: #Eosinphils 0.1 thou/uL (0.0-0.7); #Lymphocytes 0.7 thou/uL (1.20-3.40); #Monocytes 0.8 thou/uL (0.11-0.59); #Neutrophils 9.2 thou/uL (1.40-6.50); %Basophils 0.1 % (0.0-1.0); %Eosinophils 0.6 % (0.0-10.0); %Lymphocytes 6.5 % (21.0-51.0); %Monocytes 7.5 % (0.0-10.0); %Neutrophils 85.3 % (42.0-75.0); Hemoglobin 11.8 g/dL (12.0-16.0); Mean Corpuscular HGB CONC 30.9 g/dL (32.0-36.0); Mean Corpuscular Hemoglobin 24.3 pg (27.0-31.0); Mean Corpuscular Volume 78.5 fL (78.0-98.0); Mean Platelet Volume 9.9 fL (7.4-10.4); Platelet Count 153 thou/uL (130-400); RBC Distribution Width 17.7 % (11.5-14.5); Red Blood Cell (RBC) Count 4.88 mill/uL (4.20-5.40); White Blood Cell (WBC) Count 10.8 thou/uL (4.8-10.8)
[2019-08-23] MEDS: Heparin 5,000 UNITS/ML VIAL SC SCH ×3 (10:21→20:14)
[2019-08-23] MEDS: lamoTRIgine 25 MG TAB PO SCH ×2 (10:21→20:15)
[2019-08-23] MEDS: Clopidogrel Bisulfate 75 MG TAB PO SCH (10:23)
[2019-08-23] MEDS: Aspirin 81 mg Enteric Coated Tablet PO SCH (10:23)
[2019-08-23] MEDS: Furosemide 40 MG TAB PO SCH (10:23)
[2019-08-23] MEDS: Famotidine 20 MG TAB PO SCH ×2 (10:23→20:15)
[2019-08-23] MEDS: predniSONE 20 MG TAB PO SCH ×2 (10:23→20:15)
[2019-08-23] MEDS: Carvedilol 6.25 MG TAB PO SCH ×2 (10:23→16:52)
[2019-08-23] MEDS: Alogliptin 25 MG TAB PO SCH (10:23)
[2019-08-23] MEDS: Sevelamer Carbonate 800 MG TAB PO SCH ×3 (10:23→16:51)
[2019-08-23] MEDS: Nystatin 500,000 UNITS/5 ML UDCUP SSW SCH ×4 (10:24→20:27)
[2019-08-23] MEDS: Allopurinol 300 MG TAB PO SCH (10:24)
--- NOTE | 2019-08-23 10:27 | PDOC.HOSPP ---
- Subjective Encounter Date: 08/23/19 Encounter Time: 09:00 Subjective: Patient seen and examined. No new complaints. No overnight events - Objective Vital Signs & Weight: Vital Signs (12 hours) Temp Pulse Resp BP Pulse Ox 08/23/19 07:41 98.1 F 98 17 117/78 98 08/23/19 07:13 91 22 H 92 L 08/23/19 07:10 91 16 92 L Weight Weight 248 lb 7 oz Most Recent Monitor Data Heart Rate from ECG 88 NIBP 125/85 NIBP BP-Mean 98 Respiration from ECG 30 SpO2 93 I&O: 08/22/19 08/23/19 08/24/19 06:59 06:59 06:59 Intake Total 480 1100 Balance 480 1100 Result Diagrams: 08/23/19 07:08 08/23/19 07:08 Additional Labs: Accuchecks 08/23/19 08/22/19 08/22/19 04:32 20:11 16:31 POC Glucose 131 H 91 98 08/22/19 11:23 POC Glucose 131 H Hospitalist ROS - Review of Systems Constitutional: reports: weakness, malaise. denies: fever, chills, sweats, other Respiratory: reports: cough, SOB with excertion. denies: dry, shortness of breath, hemoptysis, pleuritic pain, sputum, wheezing, other Cardiovascular: denies: chest pain, palpitations, orthopnea, paroxysmal noc. dyspnea, edema, light headedness, other Gastrointestinal: denies: nausea, vomiting, abdominal pain, diarrhea, constipation, melena, hematochezia, other Genitourinary: denies: dysuria, frequency, incontinence, hematuria, retention, other Musculoskeletal: denies: neck pain, shoulder pain, arm pain, back pain, hand pain, leg pain, foot pain, other - Medication Medications: Active Medications Generic Name Dose Route Start Last Admin Trade Name Freq PRN Reason Stop Dose Admin Albuterol/Ipratropium 3 ml 08/12/19 19:00 08/23/19 07:13 Duoneb NEB 3 ml [id number] BRIEN Administration Allopurinol 150 mg 08/13/19 09:00 08/22/19 08:09 Zyloprim PO 150 mg DAILY BRIEN Administration Alogliptin Benzoate 25 mg 08/13/19 09:00 08/22/19 08:10 Alogliptin PO 25 mg DAILY BRIEN Administration Aspirin 81 mg 08/13/19 09:00 08/22/19 08:10 Ecotrin PO 81 mg DAILY BRIEN Administration Carvedilol 12.5 mg 08/13/19 16:30 08/22/19 16:34 Coreg PO Not Given BID-AC BRIEN Clopidogrel Bisulfate 75 mg 08/13/19 09:00 08/22/19 08:10 Plavix PO 75 mg DAILY BRIEN Administration Famotidine 20 mg 08/12/19 21:00 08/22/19 20:34 Pepcid PO 20 mg BID BRIEN Administration Furosemide 40 mg 08/13/19 09:00 08/22/19 08:10 Lasix PO 40 mg DAILY BRIEN Administration Heparin Sodium (Porcine) 5,000 units 08/12/19 21:00 08/22/19 20:34 Heparin SC 5,000 units TID BRIEN Administration Lamotrigine 50 mg 08/13/19 09:00 08/22/19 20:33 Lamictal PO 50 mg BID BRIEN Administration Levofloxacin 500 mg 08/18/19 09:00 08/22/19 08:09 Levaquin PO 500 mg DAILY BRIEN Administration Mometasone Furoate/Formoterol Fumar 2 puff 08/13/19 18:30 08/23/19 07:10 Dulera 100 Mcg/5 Mcg Inhaler INH 2 puff BID-RT BRIEN Administration Nystatin 500,000 units 08/21/19 13:00 08/22/19 20:43 Mycostatin SSW 500,000 units QID BRIEN Administration Pravastatin Sodium 20 mg 08/13/19 21:00 08/22/19 20:34 Pravachol PO 20 mg HS BRIEN Administration Prednisone 20 mg 08/18/19 09:00 08/22/19 20:34 Prednisone PO 20 mg BID BRIEN Administration Senna/Docusate Sodium 2 tab 08/12/19 15:16 08/22/19 13:58 Senokot S PO 2 tab BIDPRN PRN Administration Constipation Sertraline HCl 100 mg 08/13/19 09:00 08/22/19 08:09 Zoloft PO 100 mg DAILY BREIN Administration Sevelamer Carbonate 800 mg 08/13/19 12:00 08/22/19 17:30 Renvela PO 800 mg TID-WM BRIEN Administration - Exam General Appearance: NAD, awake alert Eye: PERRL, anicteric sclera ENT: normocephalic atraumatic, no oropharyngeal lesions Neck: supple, symmetric, no JVD Heart: RRR, no murmur, no gallops, no rubs Respiratory: no wheezes, no tachypnea Respiratory - other findings: coarse rales+ Gastrointestinal: soft, non-tender, non-distended Extremities: no cyanosis, no clubbing, no edema Skin: normal turgor, no lesions Neurological: no focal deficits Musculoskeletal: normal tone, normal strength Psychiatric: normal affect, normal behavior Hosp A/P (1) Acute respiratory failure with hypoxia Code(s): J96.01 - ACUTE RESPIRATORY FAILURE WITH HYPOXIA Status: Acute (2) Interstitial lung disease Code(s): J84.9 - INTERSTITIAL PULMONARY DISEASE, UNSPECIFIED Status: Acute (3) Morbid obesity with BMI of 40.0-44.9, adult Code(s): E66.01 - MORBID (SEVERE) OBESITY DUE TO EXCESS CALORIES; Z68.41 - BODY MASS INDEX (BMI) 40.0-44.9, ADULT Status: Chronic (4) CKD (chronic kidney disease) stage 3, GFR 30-59 ml/min Code(s): N18.3 - CHRONIC KIDNEY DISEASE, STAGE 3 (MODERATE) Status: Acute (5) COPD (chronic obstructive pulmonary disease) Status: Chronic Qualifiers: COPD type: unspecified COPD Qualified Code(s): J44.9 - Chronic obstructive pulmonary disease, unspecified (6) HTN (hypertension) Code(s): I10 - ESSENTIAL (PRIMARY) HYPERTENSION Status: Chronic Qualifiers: Hypertension type: essential hypertension Qualified Code(s): I10 - Essential (primary) hypertension - Plan old records reviewed/req, PT/OT, manager social responsibility 08/21/19 medication reviewed continue to provide supportive care nystatin for oral thrush pulmonary following 08/22/19 medication reviewed and continue to provide supportive care pulmonary following 08/22/19 medication reviewed and continue to provide supportive care will need placement medically stable with current treatment
[2019-08-23] MEDS ORDERED: Bisacodyl 10 MG SUPP PR SCH (16:00)
[2019-08-23 17:07] VITALS: BMI 40.1
--- NOTE | 2019-08-23 18:01 | PRG ---
DATE OF SERVICE: 08/23/2019 SERVICE: Pulmonary Medicine. INTERVAL HISTORY: The patient is doing fine from respiratory standpoint. Denies any current chest discomfort, nausea, or vomiting. Whenever she sits to forward or lies back, she ends up with a little bit more dyspnea that limits her activity. Otherwise, she is roughly at baseline. PHYSICAL EXAMINATION: VITAL SIGNS: Afebrile, pulse 92, blood pressure 117/78, respirations 24, saturation 89% on 5 L nasal cannula. GENERAL: The patient is awake and alert, in no apparent distress. LUNGS: Very good air entry. No prolonged expiratory phase or wheezing is appreciated. There is some significant crackling present. HEART: Normal rate and regular. ABDOMEN: Soft, nontender, nondistended. Bowel sounds are positive. MUSCULOSKELETAL: No cyanosis or clubbing. There is no pitting in the bilateral lower extremities. NEUROLOGIC: Grossly nonfocal. LABORATORY DATA: WBC 10.8, hemoglobin 11.8, and platelets 153,000. PH 7.42, pCO2 of 50, pO2 of 59, corresponding to saturation 93% while she was wearing BiPAP. Creatinine 1.94, which is above baseline of 1.4. Basic metabolic profile and liver function studies are otherwise unremarkable. Respiratory virus panel is negative. Blood cultures x2 and influenza A and B are negative. ASSESSMENT: 1. Chronic hypoxic and hypercapnic respiratory failure. 2. Interstitial lung disease, quite advanced. 3. Idiopathic pulmonary fibrosis, suspected. 4. Chronic diastolic heart failure. 5. Pulmonary hypertension, by echo criteria only. DISCUSSION AND PLAN: The patient is doing poorly from respiratory standpoint, but chronically so. At this point, it is my understanding the patient is essentially back to baseline. On discharge from the hospital, she can be dropped down to 20 mg of prednisone, which can be continued indefinitely. Pulmonary will follow while the patient remains inhouse. Job ID: [id number]
[2019-08-23] MEDS: Pravastatin Sodium 20 MG TAB PO SCH (20:15)
[2019-08-24] MEDS: Mometasone/Formoterol 120 PUFF INHALER INH SCH ×2 (07:54→20:09)
[2019-08-24] MEDS: Nystatin 500,000 UNITS/5 ML UDCUP SSW SCH ×4 (09:09→20:47)
[2019-08-24] MEDS: Heparin 5,000 UNITS/ML VIAL SC SCH ×3 (09:09→20:41)
[2019-08-24] MEDS: Aspirin 81 mg Enteric Coated Tablet PO SCH (09:10)
[2019-08-24] MEDS: Allopurinol 300 MG TAB PO SCH (09:10)
[2019-08-24] MEDS: Clopidogrel Bisulfate 75 MG TAB PO SCH (09:11)
[2019-08-24] MEDS: Alogliptin 25 MG TAB PO SCH (09:11)
[2019-08-24] MEDS: Famotidine 20 MG TAB PO SCH ×2 (09:11→20:41)
[2019-08-24] MEDS: lamoTRIgine 25 MG TAB PO SCH ×2 (09:11→20:41)
[2019-08-24] MEDS: predniSONE 20 MG TAB PO SCH ×2 (09:11→20:41)
[2019-08-24] MEDS: Furosemide 40 MG TAB PO SCH (09:12)
[2019-08-24] MEDS: Carvedilol 6.25 MG TAB PO SCH ×2 (09:12→17:38)
[2019-08-24] MEDS: Sevelamer Carbonate 800 MG TAB PO SCH ×3 (09:13→17:34)
--- NOTE | 2019-08-24 10:40 | PDOC.HOSPP ---
- Subjective Encounter Date: 08/24/19 Encounter Time: 09:20 Subjective: Patient seen and examined. No new complaints. No overnight events - Objective Vital Signs & Weight: Vital Signs (12 hours) Temp Pulse Resp BP BP Pulse Ox 08/24/19 09:12 117/78 08/24/19 07:44 98.3 F 89 21 H 103/69 94 L 08/24/19 07:43 92 20 100 Weight Admit Weight 251 lb Weight 248 lb 7 oz Most Recent Monitor Data Heart Rate from ECG 88 NIBP 125/85 NIBP BP-Mean 98 Respiration from ECG 30 SpO2 93 I&O: 08/23/19 08/24/19 08/25/19 06:59 06:59 06:59 Intake Total 1100 1580 240 Balance 1100 1580 240 Result Diagrams: 08/23/19 07:08 08/23/19 07:08 Additional Labs: Accuchecks 08/24/19 08/23/19 08/23/19 04:40 20:18 15:56 POC Glucose 112 H 109 99 08/23/19 11:32 POC Glucose 90 Hospitalist ROS - Review of Systems ENT: denies: ear pain, ear discharge, nose pain, nose discharge, nose congestion , mouth pain, mouth swelling, throat pain, throat swelling, other Respiratory: denies: cough, dry, shortness of breath, hemoptysis, SOB with excertion, pleuritic pain, sputum, wheezing, other Cardiovascular: denies: chest pain, palpitations, orthopnea, paroxysmal noc. dyspnea, edema, light headedness, other Gastrointestinal: denies: nausea, vomiting, abdominal pain, diarrhea, constipation, melena, hematochezia, other Genitourinary: denies: dysuria, frequency, incontinence, hematuria, retention, other Musculoskeletal: denies: neck pain, shoulder pain, arm pain, back pain, hand pain, leg pain, foot pain, other - Medication Medications: Active Medications Generic Name Dose Route Start Last Admin Trade Name Freq PRN Reason Stop Dose Admin Albuterol/Ipratropium 3 ml 08/12/19 19:00 08/24/19 07:43 Duoneb NEB 3 ml [id number] BRIEN Administration Allopurinol 150 mg 08/13/19 09:00 08/24/19 09:10 Zyloprim PO 150 mg DAILY BRIEN Administration Alogliptin Benzoate 25 mg 08/13/19 09:00 08/24/19 09:11 Alogliptin PO 25 mg DAILY BRIEN Administration Aspirin 81 mg 08/13/19 09:00 08/24/19 09:10 Ecotrin PO 81 mg DAILY BRIEN Administration Carvedilol 12.5 mg 08/13/19 16:30 08/24/19 09:12 Coreg PO 12.5 mg BID-AC BRIEN Administration Clopidogrel Bisulfate 75 mg 08/13/19 09:00 08/24/19 09:11 Plavix PO 75 mg DAILY BRIEN Administration Famotidine 20 mg 08/12/19 21:00 08/24/19 09:11 Pepcid PO 20 mg BID RBIEN Administration Furosemide 40 mg 08/13/19 09:00 08/24/19 09:12 Lasix PO 40 mg DAILY BRIEN Administration Heparin Sodium (Porcine) 5,000 units 08/12/19 21:00 08/24/19 09:09 Heparin SC 5,000 units TID BRIEN Administration Lamotrigine 50 mg 08/13/19 09:00 08/24/19 09:11 Lamictal PO 50 mg BID BRIEN Administration Levofloxacin 500 mg 08/18/19 09:00 08/24/19 09:11 Levaquin PO 500 mg DAILY BRIEN Administration Mometasone Furoate/Formoterol Fumar 2 puff 08/13/19 18:30 08/24/19 07:54 Dulera 100 Mcg/5 Mcg Inhaler INH 2 puff BID-RT BRIEN Administration Nystatin 500,000 units 08/21/19 13:00 08/24/19 09:09 Mycostatin SSW 500,000 units QID BRIEN Administration Pravastatin Sodium 20 mg 08/13/19 21:00 08/23/19 20:15 Pravachol PO 20 mg HS BRIEN Administration Prednisone 20 mg 08/18/19 09:00 08/24/19 09:11 Prednisone PO 20 mg BID BRIEN Administration Senna/Docusate Sodium 2 tab 08/12/19 15:16 08/22/19 13:58 Senokot S PO 2 tab BIDPRN PRN Administration Constipation Sertraline HCl 100 mg 08/13/19 09:00 08/24/19 09:12 Zoloft PO 100 mg DAILY BRIEN Administration Sevelamer Carbonate 800 mg 08/13/19 12:00 08/24/19 09:13 Renvela PO 800 mg TID- BRIEN Administration - Exam General Appearance: NAD, awake alert Eye: PERRL, anicteric sclera ENT: normocephalic atraumatic, no oropharyngeal lesions Neck: supple, symmetric, no JVD Heart: RRR, no murmur, no gallops Respiratory: CTAB, no ronchi, no tachypnea Gastrointestinal: soft, non-tender, non-distended Extremities: no cyanosis, no clubbing, no edema Skin: normal turgor, no lesions Neurological: no focal deficits Musculoskeletal: normal tone, normal strength Psychiatric: normal affect, normal behavior Hosp A/P (1) Acute respiratory failure with hypoxia Code(s): J96.01 - ACUTE RESPIRATORY FAILURE WITH HYPOXIA Status: Acute (2) Interstitial lung disease Code(s): J84.9 - INTERSTITIAL PULMONARY DISEASE, UNSPECIFIED Status: Acute (3) Morbid obesity with BMI of 40.0-44.9, adult Code(s): E66.01 - MORBID (SEVERE) OBESITY DUE TO EXCESS CALORIES; Z68.41 - BODY MASS INDEX (BMI) 40.0-44.9, ADULT Status: Chronic (4) CKD (chronic kidney disease) stage 3, GFR 30-59 ml/min Code(s): N18.3 - CHRONIC KIDNEY DISEASE, STAGE 3 (MODERATE) Status: Acute (5) COPD (chronic obstructive pulmonary disease) Status: Chronic Qualifiers: COPD type: unspecified COPD Qualified Code(s): J44.9 - Chronic obstructive pulmonary disease, unspecified (6) HTN (hypertension) Code(s): I10 - ESSENTIAL (PRIMARY) HYPERTENSION Status: Chronic Qualifiers: Hypertension type: essential hypertension Qualified Code(s): I10 - Essential (primary) hypertension - Plan old records reviewed/req, respiratory therapy, DVT proph w/lovenox 08/21/19 medication reviewed continue to provide supportive care nystatin for oral thrush pulmonary following 08/22/19 medication reviewed and continue to provide supportive care pulmonary following 08/23/19 medication reviewed and continue to provide supportive care will need placement medically stable with current treatment 08/24/19 medication reviewed as above and continue to provide supportive care stable and improving constipation resolved await placement
[2019-08-24] MEDS ORDERED: Bisacodyl 10 MG SUPP PR SCH (17:00)
--- NOTE | 2019-08-24 17:42 | PRG ---
DATE OF SERVICE: 08/24/2019 SERVICE: Pulmonary Medicine. INTERVAL HISTORY: The patient is breathing comfortably today. Denies any current chest discomfort, nausea, or vomiting. Whenever she moves, she feels significantly winded. Outside of that, however, she is comfortable. She has no complaints of sputum production. She is having a cough, which is at baseline. PHYSICAL EXAMINATION: VITAL SIGNS: Afebrile, pulse 100, blood pressure 117/78, respirations 20, saturation 96% on 5 L nasal cannula. GENERAL: The patient is awake and alert, in no apparent distress. LUNGS: Decent air entry. No prolonged expiratory phase is present. Crackles are noted. HEART: Normal rate, regular. ABDOMEN: Soft, nontender, and nondistended. Bowel sounds are positive. MUSCULOSKELETAL: No cyanosis or clubbing. No pitting in the bilateral lower extremities. NEUROLOGIC: Grossly nonfocal. ASSESSMENT: 1. Chronic hypoxic and hypercapnic respiratory failure. 2. Interstitial lung disease, quite advanced. 3. Idiopathic pulmonary fibrosis, suspected. 4. Chronic diastolic heart failure. 5. Pulmonary hypertension by echo criteria. DISCUSSION AND PLAN: The patient has end-stage lung disease. She is not a good candidate for lung transplantation. Supportive care including steroids will be continued. When she is discharged from the hospital, she can be dropped to 20 mg on a daily basis. Pulmonary will follow. Job ID: [id number]
[2019-08-24] MEDS: Senokot S 8.6-50 MG TAB PO PRN (20:41)
[2019-08-24] MEDS: Pravastatin Sodium 20 MG TAB PO SCH (20:41)
[2019-08-24] MEDS ORDERED: Polyethylene Glycol 3350 17 GM Packet PO PRN (22:48)
[2019-08-24] MEDS ORDERED: Polyethylene Glycol 3350 17 GM Packet PO SCH (23:00)
[2019-08-25] MEDS: Mometasone/Formoterol 120 PUFF INHALER INH SCH ×2 (07:26→18:54)
[2019-08-25] MEDS: Carvedilol 6.25 MG TAB PO SCH ×2 (08:11→16:33)
[2019-08-25] MEDS: Allopurinol 300 MG TAB PO SCH (08:12)
[2019-08-25] MEDS: predniSONE 20 MG TAB PO SCH ×2 (08:12→19:56)
[2019-08-25] MEDS: Sevelamer Carbonate 800 MG TAB PO SCH ×3 (08:12→18:30)
[2019-08-25] MEDS: lamoTRIgine 25 MG TAB PO SCH ×2 (08:13→19:56)
[2019-08-25] MEDS: Heparin 5,000 UNITS/ML VIAL SC SCH ×3 (08:13→19:56)
[2019-08-25] MEDS: Alogliptin 25 MG TAB PO SCH (08:13)
[2019-08-25] MEDS: Clopidogrel Bisulfate 75 MG TAB PO SCH (08:14)
[2019-08-25] MEDS: Famotidine 20 MG TAB PO SCH ×2 (08:14→19:56)
[2019-08-25] MEDS: Aspirin 81 mg Enteric Coated Tablet PO SCH (08:14)
[2019-08-25] MEDS: Furosemide 40 MG TAB PO SCH (08:14)
[2019-08-25] MEDS: Nystatin 500,000 UNITS/5 ML UDCUP SSW SCH ×4 (08:27→19:57)
--- NOTE | 2019-08-25 10:47 | PDOC.HOSPP ---
- Subjective Encounter Date: 08/25/19 Encounter Time: 09:30 Subjective: pt is requiring high flow oxygen, very weak, - Objective Vital Signs & Weight: Vital Signs (12 hours) Temp Pulse Resp BP Pulse Ox 08/25/19 10:01 83 18 95 08/25/19 08:00 97.8 F 84 20 109/73 97 08/25/19 07:22 81 20 100 08/25/19 04:32 98.7 F 71 18 123/72 98 08/25/19 02:28 98 08/25/19 00:03 97.5 F L 95 20 105/61 97 08/24/19 22:49 96 Weight Admit Weight 251 lb Weight 248 lb 7 oz Most Recent Monitor Data Heart Rate from ECG 88 NIBP 125/85 NIBP BP-Mean 98 Respiration from ECG 30 SpO2 93 I&O: 08/24/19 08/25/19 08/26/19 06:59 06:59 06:59 Intake Total 1580 1420 Balance 1580 1420 Result Diagrams: 08/23/19 07:08 08/23/19 07:08 Additional Labs: Accuchecks 08/25/19 08/24/19 08/24/19 04:32 20:03 15:51 POC Glucose 107 114 H 106 08/24/19 13:19 POC Glucose 94 Hospitalist ROS - Review of Systems Constitutional: reports: weakness. denies: fever, chills, sweats, malaise, other Respiratory: reports: cough, shortness of breath, SOB with excertion. denies: dry, hemoptysis, pleuritic pain, sputum, wheezing, other Cardiovascular: denies: chest pain, palpitations, orthopnea, paroxysmal noc. dyspnea, edema, light headedness, other Gastrointestinal: denies: nausea, vomiting, abdominal pain, diarrhea, constipation, melena, hematochezia, other Genitourinary: denies: dysuria, frequency, incontinence, hematuria, retention, other Musculoskeletal: denies: neck pain, shoulder pain, arm pain, back pain, hand pain, leg pain, foot pain, other - Medication Medications: Active Medications Generic Name Dose Route Start Last Admin Trade Name Freq PRN Reason Stop Dose Admin Albuterol/Ipratropium 3 ml 08/12/19 19:00 08/25/19 10:01 Duoneb NEB 3 ml [id number] BRIEN Administration Allopurinol 150 mg 08/13/19 09:00 08/25/19 08:12 Zyloprim PO 150 mg DAILY BRIEN Administration Alogliptin Benzoate 25 mg 08/13/19 09:00 08/25/19 08:13 Alogliptin PO 25 mg DAILY BRIEN Administration Aspirin 81 mg 08/13/19 09:00 08/25/19 08:14 Ecotrin PO 81 mg DAILY BRIEN Administration Carvedilol 12.5 mg 08/13/19 16:30 08/25/19 08:11 Coreg PO 12.5 mg BID-AC BRIEN Administration Clopidogrel Bisulfate 75 mg 08/13/19 09:00 08/25/19 08:14 Plavix PO 75 mg DAILY BRIEN Administration Famotidine 20 mg 08/12/19 21:00 08/25/19 08:14 Pepcid PO 20 mg BID BRIEN Administration Furosemide 40 mg 08/13/19 09:00 08/25/19 08:14 Lasix PO 40 mg DAILY BRIEN Administration Heparin Sodium (Porcine) 5,000 units 08/12/19 21:00 08/25/19 08:13 Heparin SC 5,000 units TID BRIEN Administration Lamotrigine 50 mg 08/13/19 09:00 08/25/19 08:13 Lamictal PO 50 mg BID BRIEN Administration Levofloxacin 500 mg 08/18/19 09:00 08/25/19 08:14 Levaquin PO 500 mg DAILY BRIEN Administration Mometasone Furoate/Formoterol Fumar 2 puff 08/13/19 18:30 08/25/19 07:26 Dulera 100 Mcg/5 Mcg Inhaler INH 2 puff BID-RT BRIEN Administration Nystatin 500,000 units 08/21/19 13:00 08/25/19 08:27 Mycostatin SSW 500,000 units QID BRIEN Administration Pravastatin Sodium 20 mg 08/13/19 21:00 08/24/19 20:41 Pravachol PO 20 mg HS BRIEN Administration Prednisone 20 mg 08/18/19 09:00 08/25/19 08:12 Prednisone PO 20 mg BID BRIEN Administration Senna/Docusate Sodium 2 tab 08/12/19 15:16 08/22/19 13:58 Senokot S PO 2 tab BIDPRN PRN Administration Constipation Sertraline HCl 100 mg 08/13/19 09:00 08/25/19 08:12 Zoloft PO 100 mg DAILY BRIEN Administration Sevelamer Carbonate 800 mg 08/13/19 12:00 08/25/19 08:12 Renvela PO 800 mg TID-WM BRIEN Administration - Exam General Appearance: NAD, awake alert Eye: PERRL, anicteric sclera ENT: normocephalic atraumatic, no oropharyngeal lesions Neck: supple, symmetric, no JVD Heart: RRR, no murmur, no gallops Respiratory: no ronchi, no tachypnea Respiratory - other findings: bilateral scattered coarse rales Gastrointestinal: soft, non-tender, non-distended, normal bowel sounds, no palpable masses Extremities: no cyanosis, no clubbing, no edema Skin: normal turgor, no lesions Neurological: no focal deficits Musculoskeletal: normal tone, normal strength Psychiatric: normal affect, normal behavior Hosp A/P (1) Acute respiratory failure with hypoxia Code(s): J96.01 - ACUTE RESPIRATORY FAILURE WITH HYPOXIA Status: Acute (2) Interstitial lung disease Code(s): J84.9 - INTERSTITIAL PULMONARY DISEASE, UNSPECIFIED Status: Acute (3) Morbid obesity with BMI of 40.0-44.9, adult Code(s): E66.01 - MORBID (SEVERE) OBESITY DUE TO EXCESS CALORIES; Z68.41 - BODY MASS INDEX (BMI) 40.0-44.9, ADULT Status: Chronic (4) CKD (chronic kidney disease) stage 3, GFR 30-59 ml/min Code(s): N18.3 - CHRONIC KIDNEY DISEASE, STAGE 3 (MODERATE) Status: Acute (5) COPD (chronic obstructive pulmonary disease) Status: Chronic Qualifiers: COPD type: unspecified COPD Qualified Code(s): J44.9 - Chronic obstructive pulmonary disease, unspecified (6) HTN (hypertension) Code(s): I10 - ESSENTIAL (PRIMARY) HYPERTENSION Status: Chronic Qualifiers: Hypertension type: essential hypertension Qualified Code(s): I10 - Essential (primary) hypertension - Plan old records reviewed/req, continue antibiotics 08/21/19 medication reviewed continue to provide supportive care nystatin for oral thrush pulmonary following 08/22/19 medication reviewed and continue to provide supportive care pulmonary following 08/23/19 medication reviewed and continue to provide supportive care will need placement medically stable with current treatment 08/24/19 medication reviewed as above and continue to provide supportive care stable and improving constipation resolved await placement 08/25/19 medication reviewed as above and symptomatic treatment await placement high risk for readmission
[2019-08-25] MEDS: Senokot S 8.6-50 MG TAB PO PRN (18:30)
[2019-08-25] MEDS: Pravastatin Sodium 20 MG TAB PO SCH (19:56)
[2019-08-26] MEDS: Mometasone/Formoterol 120 PUFF INHALER INH SCH ×2 (06:49→18:58)
[2019-08-26] MEDS: Nystatin 500,000 UNITS/5 ML UDCUP SSW SCH ×4 (08:57→20:52)
[2019-08-26] MEDS: Allopurinol 300 MG TAB PO SCH (08:58)
[2019-08-26] MEDS: Alogliptin 25 MG TAB PO SCH (08:58)
[2019-08-26] MEDS: Aspirin 81 mg Enteric Coated Tablet PO SCH (08:58)
[2019-08-26] MEDS: Carvedilol 6.25 MG TAB PO SCH ×2 (08:59→16:25)
[2019-08-26] MEDS: Famotidine 20 MG TAB PO SCH ×2 (08:59→20:53)
[2019-08-26] MEDS: Furosemide 40 MG TAB PO SCH (08:59)
[2019-08-26] MEDS: predniSONE 20 MG TAB PO SCH ×2 (08:59→20:52)
[2019-08-26] MEDS: lamoTRIgine 25 MG TAB PO SCH ×2 (08:59→20:52)
[2019-08-26] MEDS: Clopidogrel Bisulfate 75 MG TAB PO SCH (09:00)
[2019-08-26] MEDS: Sevelamer Carbonate 800 MG TAB PO SCH ×3 (09:00→18:17)
[2019-08-26] MEDS: Heparin 5,000 UNITS/ML VIAL SC SCH ×3 (09:00→20:53)
--- NOTE | 2019-08-26 10:29 | PRG ---
DATE OF SERVICE: 08/25/2019 SUBJECTIVE: Ms. Thomas was evaluated. Over the weekend, she went on high-flow O2. She says she is feeling better. OBJECTIVE: VITAL SIGNS: She is afebrile, heart rate is 86, blood pressure 115/77. LUNGS: Remarkable for crackles bilaterally. HEART: Regular rhythm. IMPRESSION: Pulmonary fibrosis. PLAN: Try to wean O2 down. It is not clear to me why she required more oxygen over the weekend, although she has not been out of bed and it may just simply be multiple areas of atelectasis. We will continue to follow. Job ID: [id number]
--- NOTE | 2019-08-26 10:40 | PDOC.HOSPP ---
- Subjective Encounter Date: 08/26/19 Encounter Time: 08:50 Subjective: pt is requiring high flow oxygen, as per nursing without that her sats drops to below 80 during sleep - Objective Vital Signs & Weight: Vital Signs (12 hours) Temp Pulse Resp BP BP Pulse Ox 08/26/19 08:59 115/77 08/26/19 08:50 100 08/26/19 07:46 97.8 F 86 22 H 115/77 100 08/26/19 06:50 80 14 Weight Admit Weight 251 lb Weight 248 lb 7 oz Most Recent Monitor Data Heart Rate from ECG 88 NIBP 125/85 NIBP BP-Mean 98 Respiration from ECG 30 SpO2 93 I&O: 08/25/19 08/26/19 08/27/19 06:59 06:59 06:59 Intake Total 1420 1370 Balance 1420 1370 Result Diagrams: 08/23/19 07:08 08/23/19 07:08 Additional Labs: Accuchecks 08/26/19 08/25/19 08/25/19 05:02 19:42 16:32 POC Glucose 118 H 129 H 104 08/25/19 11:36 POC Glucose 89 Hospitalist ROS - Review of Systems Constitutional: reports: weakness. denies: fever, chills, sweats, malaise, other Respiratory: reports: shortness of breath, SOB with excertion. denies: cough, dry, hemoptysis, pleuritic pain, sputum, wheezing, other Cardiovascular: denies: chest pain, palpitations, orthopnea, paroxysmal noc. dyspnea, edema, light headedness, other Gastrointestinal: denies: nausea, vomiting, abdominal pain, diarrhea, constipation, melena, hematochezia, other Genitourinary: denies: dysuria, frequency, incontinence, hematuria, retention, other Musculoskeletal: denies: neck pain, shoulder pain, arm pain, back pain, hand pain, leg pain, foot pain, other - Medication Medications: Active Medications Generic Name Dose Route Start Last Admin Trade Name Freq PRN Reason Stop Dose Admin Albuterol/Ipratropium 3 ml 08/12/19 19:00 08/26/19 06:50 Duoneb NEB 3 ml [id number] BRIEN Administration Allopurinol 150 mg 08/13/19 09:00 08/26/19 08:58 Zyloprim PO 150 mg DAILY BRIEN Administration Alogliptin Benzoate 25 mg 08/13/19 09:00 08/26/19 08:58 Alogliptin PO 25 mg DAILY BRIEN Administration Aspirin 81 mg 08/13/19 09:00 08/26/19 08:58 Ecotrin PO 81 mg DAILY BRIEN Administration Carvedilol 12.5 mg 08/13/19 16:30 08/26/19 08:59 Coreg PO 12.5 mg BID-AC BRIEN Administration Clopidogrel Bisulfate 75 mg 08/13/19 09:00 08/26/19 09:00 Plavix PO 75 mg DAILY BRIEN Administration Famotidine 20 mg 08/12/19 21:00 08/26/19 08:59 Pepcid PO 20 mg BID BRIEN Administration Furosemide 40 mg 08/13/19 09:00 08/26/19 08:59 Lasix PO 40 mg DAILY BRIEN Administration Heparin Sodium (Porcine) 5,000 units 08/12/19 21:00 08/26/19 09:00 Heparin SC 5,000 units TID BRIEN Administration Lamotrigine 50 mg 08/13/19 09:00 08/26/19 08:59 Lamictal PO 50 mg BID BRIEN Administration Levofloxacin 500 mg 08/18/19 09:00 08/26/19 08:58 Levaquin PO 500 mg DAILY BRIEN Administration Mometasone Furoate/Formoterol Fumar 2 puff 08/13/19 18:30 08/26/19 06:49 Dulera 100 Mcg/5 Mcg Inhaler INH 2 puff BID-RT BRIEN Administration Nystatin 500,000 units 08/21/19 13:00 08/26/19 08:57 Mycostatin SSW 500,000 units QID BRIEN Administration Pravastatin Sodium 20 mg 08/13/19 21:00 08/25/19 19:56 Pravachol PO 20 mg HS BRIEN Administration Prednisone 20 mg 08/18/19 09:00 08/26/19 08:59 Prednisone PO 20 mg BID BRIEN Administration Senna/Docusate Sodium 2 tab 08/12/19 15:16 08/25/19 18:30 Senokot S PO 2 tab BIDPRN PRN Administration Constipation Sertraline HCl 100 mg 08/13/19 09:00 08/26/19 09:00 Zoloft PO 100 mg DAILY BRIEN Administration Sevelamer Carbonate 800 mg 08/13/19 12:00 08/26/19 09:00 Renvela PO 800 mg TID-[facility] Administration - Exam General Appearance: NAD, awake alert Eye: PERRL, anicteric sclera ENT: normocephalic atraumatic, no oropharyngeal lesions Neck: supple, symmetric, no JVD Heart: RRR, no murmur, no gallops Respiratory - other findings: bilateral coarse rales Gastrointestinal: soft, non-tender, non-distended Extremities: no cyanosis, no clubbing, no edema Skin: normal turgor, no lesions Neurological: no focal deficits Musculoskeletal: normal tone, normal strength Psychiatric: normal affect, normal behavior Hosp A/P (1) Acute respiratory failure with hypoxia Code(s): J96.01 - ACUTE RESPIRATORY FAILURE WITH HYPOXIA Status: Acute (2) Interstitial lung disease Code(s): J84.9 - INTERSTITIAL PULMONARY DISEASE, UNSPECIFIED Status: Acute (3) Morbid obesity with BMI of 40.0-44.9, adult Code(s): E66.01 - MORBID (SEVERE) OBESITY DUE TO EXCESS CALORIES; Z68.41 - BODY MASS INDEX (BMI) 40.0-44.9, ADULT Status: Chronic (4) CKD (chronic kidney disease) stage 3, GFR 30-59 ml/min Code(s): N18.3 - CHRONIC KIDNEY DISEASE, STAGE 3 (MODERATE) Status: Acute (5) COPD (chronic obstructive pulmonary disease) Status: Chronic Qualifiers: COPD type: unspecified COPD Qualified Code(s): J44.9 - Chronic obstructive pulmonary disease, unspecified (6) HTN (hypertension) Code(s): I10 - ESSENTIAL (PRIMARY) HYPERTENSION Status: Chronic Qualifiers: Hypertension type: essential hypertension Qualified Code(s): I10 - Essential (primary) hypertension - Plan old records reviewed/req, continue antibiotics, PT/OT, social worker psychiatric, respiratory therapy 08/21/19 medication reviewed continue to provide supportive care nystatin for oral thrush pulmonary following 08/22/19 medication reviewed and continue to provide supportive care pulmonary following 08/23/19 medication reviewed and continue to provide supportive care will need placement medically stable with current treatment 08/24/19 medication reviewed as above and continue to provide supportive care stable and improving constipation resolved await placement 08/25/19 medication reviewed as above and symptomatic treatment await placement high risk for readmission 08/26/19 as pt is on high flow oxygen, she can not be discharged to SNU, today will wean off oxygen and see how her saturation remains if she does not need high flow oxygen, then we can consider discharge to SNU medication reviewed as above and continue to provide supportive care
[2019-08-26] MEDS: Pravastatin Sodium 20 MG TAB PO SCH (20:52)
--- NOTE | 2019-08-26 22:01 | PRG ---
DATE OF SERVICE: 08/26/2019 SUBJECTIVE: Christen Thomas says she feels better. She says she feels 100% better than she did yesterday. She is ready to go to rehab. OBJECTIVE: VITAL SIGNS: She is afebrile. Heart rate is 96, respiratory rate is 18, oximetry is 92% on nasal cannula, blood pressure 115/71. LUNGS: Remarkable for diffuse crackles. HEART: Regular rhythm. ABDOMEN: Soft. IMPRESSION: Pulmonary fibrosis, clinically stable. PLAN: We will continue to follow as long as she is in the hospital. Job ID: [id number]
[2019-08-27] MEDS: Mometasone/Formoterol 120 PUFF INHALER INH SCH ×2 (07:00→18:15)
[2019-08-27 08:12] LABS: Aspergillus fumigatus Negative (Negative); Aureobasidium pullalans IgG Negative (Negative); Micropolyspora faeni Negative (Negative); Pigeon Droppings IgG Negative (Negative); T sacchari Negative (Negative); T vulgaris Negative (Negative)
[2019-08-27] MEDS: Aspirin 81 mg Enteric Coated Tablet PO SCH (08:40)
[2019-08-27] MEDS: lamoTRIgine 25 MG TAB PO SCH ×2 (08:40→20:47)
[2019-08-27] MEDS: Famotidine 20 MG TAB PO SCH ×2 (08:40→20:47)
[2019-08-27] MEDS: predniSONE 20 MG TAB PO SCH ×2 (08:41→20:47)
[2019-08-27] MEDS: Alogliptin 25 MG TAB PO SCH (08:41)
[2019-08-27] MEDS: Carvedilol 6.25 MG TAB PO SCH ×2 (08:41→16:45)
[2019-08-27] MEDS: Allopurinol 300 MG TAB PO SCH (08:41)
[2019-08-27] MEDS: Furosemide 40 MG TAB PO SCH (08:41)
[2019-08-27] MEDS: Clopidogrel Bisulfate 75 MG TAB PO SCH (08:41)
[2019-08-27] MEDS: Heparin 5,000 UNITS/ML VIAL SC SCH ×3 (08:43→20:47)
--- NOTE | 2019-08-27 09:13 | PRG ---
DATE OF SERVICE: 08/27/2019 SUBJECTIVE: This morning, she is awake, alert, and responsive. OBJECTIVE: VITAL SIGNS: Saturations are 97% on 4 L, temperature 98, blood pressure 111/72, pulse 87. GENERAL: She is weak, but no shortness of breath or coughing. CHEST: Bilateral crackles without any wheezing. CARDIAC: Normal S1 and S2. No gallops. ABDOMEN: No mass. EXTREMITIES: No edema. ASSESSMENT AND PLAN: 1. Pulmonary fibrosis, on steroids. 2. Morbid obesity. 3. Severe deconditioning. Continue present treatment, eventually placement. Job ID: [id number]
[2019-08-27] MEDS: Nystatin 500,000 UNITS/5 ML UDCUP SSW SCH ×4 (10:08→20:47)
[2019-08-27] MEDS: Sevelamer Carbonate 800 MG TAB PO SCH ×3 (10:08→17:59)
--- NOTE | 2019-08-27 16:07 | PRG ---
DATE OF SERVICE: 08/27/2019 SUBJECTIVE: The patient is seen and examined at the bedside. The patient is switched to nasal cannula successfully, and she is saturating 94% on 4 L by nasal cannula. OBJECTIVE: VITAL SIGNS: Her pulse is 96, temperature is 98.0, respiratory rate is 20. HEENT: Her head is atraumatic and normocephalic. Sclerae are nonicteric. Conjunctivae are pinkish. Oral mucosa is moist. NECK: Supple. LUNGS: Bilateral dry crackles present. Some wheezes bilaterally. HEART: S1 and S2 are normal. No S3. No S4. ABDOMEN: Soft and nontender. Bowel sounds are present. No organomegaly. NEUROLOGIC: She follows my commands. She moves her all 4 extremities. There are no any motor deficits. LABORATORY DATA: None today. IMPRESSION: 1. Acute respiratory failure with hypoxia. 2. Interstitial lung disease. 3. Chronic kidney disease, stage 3. 4. Chronic obstructive pulmonary disease. 5. Hypertension. PLAN: We are going to continue her prednisone 20 mg after she is discharged from the hospital. We are waiting for approval. We are trying to reach a [id number] MD from [employer] to approve her to go back to her place, [facility] where she was residing prior to this hospitalization. We are going to continue her current regimen, which includes inhaled steroids, DuoNebs, prednisone, and the rest of the regimen with Accu-Cheks a.c. and at bedtime and coverage with sliding scale insulin. Job ID: [id number]
[2019-08-27] MEDS: Pravastatin Sodium 20 MG TAB PO SCH (20:47)
[2019-08-28] MEDS: Mometasone/Formoterol 120 PUFF INHALER INH SCH ×2 (07:12→18:35)
[2019-08-28] MEDS: Sevelamer Carbonate 800 MG TAB PO SCH ×3 (09:01→17:00)
[2019-08-28] MEDS: Alogliptin 25 MG TAB PO SCH (09:02)
[2019-08-28] MEDS: Furosemide 40 MG TAB PO SCH (09:03)
[2019-08-28] MEDS: Famotidine 20 MG TAB PO SCH ×2 (09:04→21:04)
[2019-08-28] MEDS: Clopidogrel Bisulfate 75 MG TAB PO SCH (09:04)
[2019-08-28] MEDS: predniSONE 20 MG TAB PO SCH ×2 (09:04→21:04)
[2019-08-28] MEDS: lamoTRIgine 25 MG TAB PO SCH ×2 (09:04→21:03)
[2019-08-28] MEDS: Nystatin 500,000 UNITS/5 ML UDCUP SSW SCH ×4 (09:05→21:02)
[2019-08-28] MEDS: Allopurinol 300 MG TAB PO SCH (09:05)
[2019-08-28] MEDS: Aspirin 81 mg Enteric Coated Tablet PO SCH (09:05)
[2019-08-28] MEDS: Heparin 5,000 UNITS/ML VIAL SC SCH ×3 (09:05→21:04)
[2019-08-28] MEDS: Carvedilol 6.25 MG TAB PO SCH ×2 (09:06→16:53)
--- NOTE | 2019-08-28 11:59 | PRG ---
DATE OF SERVICE: 08/28/2019 SUBJECTIVE: Christen Thomas is a 59-year-old female. This morning, she is better, less short of breath, less cough. OBJECTIVE: VITAL SIGNS: Saturations are 98% on 4 L, temperature 98, pulse 85, and blood pressure 120/79. CHEST: No wheezing. Bilateral crackles. CARDIAC: Normal S1, S2. No gallops. ABDOMEN: No masses. ASSESSMENT: 1. Pulmonary fibrosis, stable. 2. Respiratory failure, improved. PLAN: Disposition, jail. Follow up with Dr. Sagastume at a later time. Job ID: [id number]
--- NOTE | 2019-08-28 16:19 | PRG ---
DATE OF SERVICE: 08/28/2019 SUBJECTIVE: The patient is seen and examined at the bedside. She is doing relatively well. She does not have much complaints to offer. Her shortness of breath improved. OBJECTIVE: VITAL SIGNS: Blood pressure is 107/75, pulse is 94, respiratory rate is 20, O2 saturation 94% on 4 L by nasal cannula. HEENT: Her head is atraumatic and normocephalic. Eyes are PERRLA. Sclerae are nonicteric. LUNGS: Bilateral dry crackles at both bases and mid lungs. Few wheezes bilaterally. HEART: S1 and S2 normal. ABDOMEN: Soft and nontender. NEUROLOGIC: She is alert and oriented x4. There are no any motor deficits. LABORATORY DATA: Glycemia is ranging from 93 to 116. IMPRESSION: 1. Acute respiratory failure with hypoxia, improved. 2. Interstitial lung disease. 3. Chronic kidney disease, stage 3. 4. Chronic obstructive pulmonary disease, improved. 5. Hypertension. PLAN: Continue current regimen with prednisone, nebulizers, and steroids. We are trying to arrange custodial facility transfer, and as soon as this is arranged, we will send her there. Job ID: [id number]
[2019-08-28] MEDS: Pravastatin Sodium 20 MG TAB PO SCH (21:03)
--- NOTE | 2019-08-29 05:33 | DIS ---
DATE OF ADMISSION: 08/12/2019 DATE OF DISCHARGE: 08/28/2019 ADMISSION DIAGNOSES: 1. Acute hypoxic respiratory failure. 2. History of stroke. 3. History of diastolic heart failure. FINAL DIAGNOSES AT THE TIME OF DISCHARGE: 1. Acute respiratory failure with hypoxia, improved. 2. Interstitial lung disease. 3. Chronic kidney disease, stage 3. 4. Chronic obstructive pulmonary disease, improved. 5. Hypertension. CONSULTANTS: Dr. Vergara, Pulmonary Service. Dr. Sagastume, Pulmonary Service. Dr. Garcia, Pulmonary Service. Dr. Jane, Pulmonary Service. HOSPITAL COURSE: The patient is a 59-year-old female who presented to the emergency room with shortness of breath. Apparently, she has a history of hypertension, diastolic heart failure, and interstitial lung disease. She was recently in the hospital at [facility] and was discharged to a jail and she was going to for her nephrology appointment. She was evaluated in the emergency room. She was initially very obtunded, was placed on BiPAP and got admitted to the hospital. At the time of ER evaluation, her white count was 12.4, hemoglobin 11.4, and hematocrit 37.3; sodium 140, potassium 4.5, , and creatinine 1.47. BNP 21.6. Her chest x-ray showed bilateral pulmonary parenchymal opacities. The patient was found to be hypoxic and was placed on BiPAP as I mentioned above. Her CT of the chest was done without contrast which showed moderate pulmonary fibrosis with associated traction bronchiectasis with distribution favoring UIP pattern of disease and enlarged left axillary lymph node and borderline prominent mediastinal lymph node. Pulmonary was consulted. Patient was started on DuoNebs. Subsequently, she was switched to a high-flow nasal cannula. Her antibiotics were continued along with DuoNebs and steroids. Her echocardiogram was done and showed LVEF estimated at 55% to 60% with some diastolic dysfunction and mild mitral regurgitation along with mild tricuspid regurgitation. Patient was continued on diuretics. Subsequently, the CT of the chest was done which showed scattered bronchiectasis with interstitial and ground glass opacities seen through diffusely within both lungs without airspace consolidation, which was consistent with the patient's known history of interstitial lung disease. Extent of the disease was predominantly basilar. She improved. Subsequently, she was switched to prednisone and she was able to be switched from high-flow nasal cannula to a nasal cannula 4 L/minute. She is quite deconditioned and we recommended her to go to [facility] facility for PT and further management of her problem, so she is discharged in improved condition with blood pressure of 107/90, pulse is 94, respiratory rate is 20, and O2 saturation is 94 on 4 L by nasal cannula. DISCHARGE DIET: She is discharged on heart healthy, low-salt diet. ACTIVITIES: Limited by her hypoxia and high O2 requirement. MEDICATIONS: At the time of discharge; 1. Aspirin 81 mg once a day. 2. Levofloxacin 500 mg for the next 5 days. 3. Prednisone 20 mg once a day. 4. Allopurinol 150 mg once a day. 5. Carvedilol 12.5 mg twice a day. 6. Clopidogrel 75 mg once a day. 7. Breo Ellipta one inhalation daily. 8. Flovent Diskus 50 mcg p.r.n. as needed. 9. Furosemide 40 mg once a day. 10. Pravastatin 20 mg at bedtime. 11. Sertraline 100 mg daily. 12. Lamotrigine 50 mg twice a day. 13. Tradjenta 5 mg daily. 14. Sevelamer 800 mg 3 times a day. FOLLOWUP: She is supposed to follow up with primary care physician in 1 week at [facility] and with Pulmonary doctor in 2 weeks. Job ID: [id number]
[2019-08-29] MEDS: Mometasone/Formoterol 120 PUFF INHALER INH SCH (06:49)
[2019-08-29 08:11] VITALS: BP 128/88
[2019-08-29] MEDS: Carvedilol 6.25 MG TAB PO SCH (09:32)
[2019-08-29] MEDS: Allopurinol 300 MG TAB PO SCH (09:33)
[2019-08-29] MEDS: Sevelamer Carbonate 800 MG TAB PO SCH ×2 (09:33→09:37)
[2019-08-29] MEDS: Famotidine 20 MG TAB PO SCH (09:34)
[2019-08-29] MEDS: Aspirin 81 mg Enteric Coated Tablet PO SCH (09:35)
[2019-08-29] MEDS: Alogliptin 25 MG TAB PO SCH (09:35)
[2019-08-29] MEDS: predniSONE 20 MG TAB PO SCH (09:35)
[2019-08-29] MEDS: Clopidogrel Bisulfate 75 MG TAB PO SCH (09:36)
[2019-08-29] MEDS: lamoTRIgine 25 MG TAB PO SCH (09:36)
[2019-08-29] MEDS: Furosemide 40 MG TAB PO SCH (09:36)
[2019-08-29] MEDS: Heparin 5,000 UNITS/ML VIAL SC SCH (09:37)
[2019-08-29] MEDS: Nystatin 500,000 UNITS/5 ML UDCUP SSW SCH (09:37)
--- NOTE | 2019-08-29 10:11 | PRG ---
DATE OF SERVICE: 08/29/2019 SUBJECTIVE: This morning, she is lying in bed. OBJECTIVE: VITAL SIGNS: Saturations on 3 L is 100%, respirations 16, temperature 98, pulse 106, blood pressure 128/88. Yesterday, she walked. Her saturations dropped a little bit this morning. She was told that when she ambulates, to increase the oxygen to 4 L. CHEST: Decreased breath sounds. Bilateral crackles. CARDIAC: Normal S1 and S2. No gallops. ABDOMEN: No masses. ASSESSMENT AND PLAN: 1. End-stage pulmonary fibrosis. 2. Morbid obesity. 3. Unfortunately, not much to do. As noted, 3 L nasal O2 at rest and 4 L when she ambulates. Taper prednisone. Follow up with Dr. Sagastume. Job ID: [id number]
[2019-08-29 12:44] VITALS: TEMP 98.5
== END 2019-08-29 15:03 | DRG 196 ==
LOC: ERS 12:03 → IMCU/EMU 16:36 → T4-A 08-16 15:36
PROVIDERS: ADMIT Emergency Medicine; ATTEND Internal Medicine
PROC: 5A09357 Assistance with Respiratory Ventilation, Less than 24 Consecutive Hours, Continuous Positive Airway Pressure (ICD-10-PCS; principal; 2019-08-12)
DX: J84.112 Idiopathic pulmonary fibrosis (principal); J96.01 Acute respiratory failure with hypoxia; I50.33 Acute on chronic diastolic (congestive) heart failure; I13.0 Hypertensive heart and chronic kidney disease with heart failure and stage 1 through stage 4 chronic kidney disease, or unspecified chronic kidney disease; Z68.41 Body mass index [BMI] 40.0-44.9, adult; N18.3 Chronic kidney disease, stage 3 (moderate); J44.9 Chronic obstructive pulmonary disease, unspecified; F31.9 Bipolar disorder, unspecified; E78.00 Pure hypercholesterolemia, unspecified; E66.01 Morbid (severe) obesity due to excess calories; I27.20 Pulmonary hypertension, unspecified; I08.1 Rheumatic disorders of both mitral and tricuspid valves; Z86.73 Personal history of transient ischemic attack (TIA), and cerebral infarction without residual deficits; Z79.899 Other long term (current) drug therapy; Z79.52 Long term (current) use of systemic steroids; Z79.02 Long term (current) use of antithrombotics/antiplatelets; Z87.891 Personal history of nicotine dependence
CPT/HCPCS: 36415; 36416; 71045; 71046; 71250; 80048; 80053; 82805; 83880; 84484; 85025; 86331; 86602; 86606; 86671; 87040; 87633; 87804; 93005; 93010; 93306; 94640; 94660; 94760; J1644; J1956; J2920; J7512; J7620

== ENCOUNTER 2019-09-05 10:03 | Outpatient (CLI) | payer MEDICARE, MEDICAID ==
--- NOTE | 2019-09-05 10:33 | RAD ---
EXAM: XR Chest Pa Lat STANDARD PROVIDED CLINICAL HISTORY: Dyspnea COMPARISON: 08/17/2019 FINDINGS: Cardiac and mediastinal silhouette is unchanged in appearance. Diffuse prominence of the pulmonary in terstitium with possible associated airspace disease. Degree of parenchymal opacity appears worsened with respect to prior. There is no evidence for pleural fluid or pneumothorax. IMPRESSION: Worsening of bilateral interstitial disease with superimposed airspace disease not excluded.
== END 2019-09-05 10:04 | disposition home or self-care (01) ==
LOC: RAD 10:03
PROVIDERS: ATTEND Internal Medicine Critical Care Medicine
DX: R06.00 Dyspnea, unspecified (principal); J84.9 Interstitial pulmonary disease, unspecified
CPT/HCPCS: 71046